=== PATIENT | female | born 1940 | race Caucasian/White ===

== ENCOUNTER 2025-03-15 15:31 | Inpatient (IN) ==
--- NOTE | 2025-03-15 15:46 | Emergency Department Note ---
Impression & Plan AMS (altered mental status), Acute UTI (urinary tract infection), ASHLI (acute kidney injury), Elevated troponin, Elevated lactic acid level ED Provider Note HISTORY OF PRESENT ILLNESS: Patient is an 85-year-old female presenting with altered mental status. Patient presents from [facility] via EMS. Patient has baseline dementia but reportedly today she has not gotten up out of bed and seems more confused than normal. Patient supplies no meaningful history. No reported fevers. No vomiting or diarrhea. Fingerstick glucose for EMS was in the 200s. No reported trauma. ROS: as above PHYSICAL EXAM: Constitutional: Patient appears in no acute distress. HENT: Head: Normocephalic and atraumatic. Eyes: EOMI, PERRL Mouth/Throat: Mucous membranes dry. Neck: Trachea midline. Neck supple. Cardiovascular: Irregular rhythm. No murmurs, rubs or gallops. Intact distal pulses. Pulmonary/Chest: No respiratory distress. Breath sounds clear and equal bilaterally. No wheezes or rales. Abdominal: Abdomen soft, no tenderness, rebound or guarding. Musculoskeletal: No edema, tenderness or deformity noted. Skin: Warm and dry. No rash, erythema, pallor or cyanosis Psychiatric: Appropriate mood and affect for situation. Neurological: Lethargic. CN II-XII grossly intact MDM: - Vitals signs showed hypothermia. - History obtained via EMS, given patient's dementia. History as above. - Chronic conditions affecting care: HLD; GERD; dementia - Differential diagnoses include, but are not limited to: pneumonia; UTI; viral syndrome; ACS; electrolyte abnormality; dehydration; pneumonia; CVA; intracranial hemorrhage - Order placed for continuous cardiac monitoring. At this time, monitor showed rate of 87 bpm with irregular rhythm, per my interpretation. - External medical records reviewed. - EKG image interpreted by myself showed atrial fibrillation. Rate 105 bpm. QT 418. No acute ischemic changes. Noted to have a right bundle branch block. - Laboratory workup interpreted by myself showed normal WBC; elevated (Hgb 18.0); normal PT/INR; stable electrolytes; elevated anion gap (16); ASHLI (Cr 1.88); elevated troponin (46.1); elevated lactic acid (4.0); normal procalcitonin - UA obtained via straight cath shows evidence of infection. - Blood cultures obtained - Patient given 2L NS in ER. Patient sepsis fluid volume calculation based on ideal body weight is 1908.90 mL. - Given 2g IV rocephin empirically - COVID/flu/RSV negative - Elevated hemoglobin, elevated anion gap and ASHLI likely secondary to dehydration. - CXR image reviewed by myself negative for pneumonia, per my interpretation. - CT head wo contrast negative for acute intracranial pathology. - Discussion was had with telephonic case manager about patient's case and need for admission - Hospitalist, Dr. Santiago, consulted for admission at 17:47 - Patient admitted to [facility] for further evaluation and management. ASSESSMENT AND PLAN: Diagnosis: altered mental status; acute UTI; ASHLI; elevated troponin; elevated lactic acid Plan: admit Past Med/Surg History Problem List (Updated 03/15/25 @ 17:44 by Tari Biswas MD) Elevated lactic acid level (Acute) Elevated troponin (Acute) ASHLI (acute kidney injury) (Acute) Acute UTI (urinary tract infection) (Acute) AMS (altered mental status) (Acute) Abnormal ECG Memory loss Ventricular ectopy present on electrocardiography Dyslipidemia Osteoarthritis GERD without esophagitis Medical History Basal cell carcinoma Family History Other Breast cancer Social History Smoking Status: Unknown if ever smoked Do You Dip or Chew Tobacco: No; Hx Alcohol Use: No Hx Substance Use: No Preferred Language: Kazakh Feels Safe at Home: Yes Allergies Allergies Allergy/AdvReac Type Severity Reaction Status Date / Time No Known Allergies Allergy Verified 03/15/25 17:20 Home Meds Home Medications Medication Instructions Recorded Confirmed acetaminophen 325 mg tablet 650 mg PO Q6H PRN PAIN/FEVER 03/15/25 03/15/25 (Tylenol) docusate sodium 100 mg capsule 100 mg PO BID PRN Constipation 03/15/25 03/15/25 loperamide 2 mg tablet 2 mg PO DIRECTED PRN Diarrhea 03/15/25 03/15/25 quetiapine 25 mg tablet (Seroquel) 25 mg PO HS 03/15/25 03/15/25 Results & Data (ED) Vital Signs Vital Signs - 24 hr 03/15/25 15:30 03/15/25 15:55 03/15/25 15:55 Temperature 35.7 C L Temperature Source Rectal Pulse Rate 101 H Pulse Rate [Apical] Respiratory Rate 20 Blood Pressure 102/73 Blood Pressure [Right Arm] Blood Pressure Mean 82 Blood Pressure Mean [Right Arm] Pulse Oximetry Oxygen Delivery Method Room Air Room Air Sepsis Recent Fever Within 48 Hours No Sepsis New/Unexplained Change in Mental Status Yes Sepsis Action Taken by Nursing Physician Notified 03/15/25 16:25 03/15/25 17:00 03/15/25 17:00 Temperature 35.7 C L Temperature Source Rectal Pulse Rate 87 Pulse Rate [Apical] 89 Respiratory Rate 18 Blood Pressure Blood Pressure [Right Arm] 109/66 Blood Pressure Mean Blood Pressure Mean [Right Arm] 80 Pulse Oximetry 98 Oxygen Delivery Method Room Air Sepsis Recent Fever Within 48 Hours Sepsis New/Unexplained Change in Mental Status Sepsis Action Taken by Nursing Laboratory Data 03/15/25 15:55 03/15/25 15:55 Lab Results 03/15/25 03/15/25 03/15/25 Range/Units 15:50 15:55 16:23 WBC 7.68 (4.8-10.8) K/ul RBC 5.65 H (4.20-5.40) M/uL Hgb 18.0 H (12.0-16.0) g/dl Hct 53.5 H (37.0-47.0) % MCV 94.7 (80.0-100.0) fL MCH 31.9 (25.0-34.0) pg MCHC 33.6 (32.0-36.0) g/dL RDW Std Deviation 47.6 H (36.4-46.3) fL RDW Coeff of Iram 13.6 (11.5-14.5) % Plt Count 271 (130-400) K/uL MPV 10.4 (9.4-12.4) fL Immature Gran % (Auto) 0.4 % Neut % (Auto) 63.4 % Lymph % (Auto) 31.6 % Stephens % (Auto) 3.1 % Eos % (Auto) 0.8 % Baso % (Auto) 0.7 % Neut # (Auto) 4.87 (1.40-6.50) K/uL Lymph # (Auto) 2.43 (1.20-3.40) K/uL Stephens # (Auto) 0.24 (0.11-0.59) K/uL Eos # (Auto) 0.06 (0.00-0.50) K/uL Baso # (Auto) 0.05 (0.00-0.20) K/uL Immature Gran # (Auto) 0.03 (0.01-0.20) K/uL PT 11.8 (9.0-12.0) Seconds INR 1.1 (0.9-1.1) APTT 25 (21-31) Seconds PTT Ratio 0.9 Sodium 139 (136-145) mmol/L Potassium 4.3 (3.5-5.1) mmol/L Chloride 105 (98-107) mmol/L Carbon Dioxide 16 L (21-32) mmol/L Anion Gap 18 H (3-11) BUN 39 H (6-23) mg/dl Creatinine 1.88 H (0.6-1.2) mg/dl Est Cr Clr Drug Dosing 18.4 ml/min eGFR 26.21 BUN/Creatinine Ratio 20.7 H (10-20) Glucose 209 H (70-99(Fasting)) mg/dl Lactate (0.4-2.0) mmol/L Calcium 10.4 H (8.6-10.3) mg/dl Magnesium 2.1 (1.7-2.4) mg/dl Total Bilirubin 1.1 H (0.2-1.0) mg/dl AST 26 (13-39) U/L ALT 14 (7-52) U/L Alkaline Phosphatase 76 (34-104) U/L Troponin I High Sens 46.1 H (0-14) pg/ml Total Protein 6.8 (6.0-8.3) gm/dl Albumin 4.0 (3.4-5.0) gm/dl Globulin 2.8 (2.5-4.0) gm/dl Albumin/Globulin Ratio 1.4 (0.9-2) Procalcitonin 0.05 (0-0.5) ng/ml Urine Color Dark Yellow Urine Appearance Cloudy A (Clear) Urine pH 5.0 (4.5-7.5) Ur Specific [place] 1.024 (1.000-1.030) Urine Protein 2+ H (Negative) Urine Glucose (UA) Negative (Negative) Urine Ketones 1+ H (Negative) Urine Blood 1+ H (Negative) Urine Nitrite Negative (Negative) Urine Bilirubin 2+ H (Negative) Urine Urobilinogen Negative (Negative) Ur Leukocyte Esterase 2+ H (Negative) Urine WBC (Auto) 21-50 H (0-5) /hpf Urine RBC (Auto) >20 H (0-2) /hpf U Hyaline Cast (Auto) >20 H (0-2) /lpf U Epithel Cells (Auto) 3-5 H (0-2) /hpf Urine Bacteria (Auto) 4+ H (None Seen) WBC Casts Present A (None Prsent) /lpf Urine Mucus Present A (None Prsent) Urine Comment SARS-CoV-2 (PCR) NEGATIVE (Negative) Influenza Type A (PCR) Negative (Neg) Influenza Type B (PCR) Negative (Neg) RSV (RT-PCR) Negative (Neg) 03/15/25 Range/Units 16:42 WBC (4.8-10.8) K/ul RBC (4.20-5.40) M/uL Hgb (12.0-16.0) g/dl Hct (37.0-47.0) % MCV (80.0-100.0) fL MCH (25.0-34.0) pg MCHC (32.0-36.0) g/dL RDW Std Deviation (36.4-46.3) fL RDW Coeff of Iram (11.5-14.5) % Plt Count (130-400) K/uL MPV (9.4-12.4) fL Immature Gran % (Auto) % Neut % (Auto) % Lymph % (Auto) % Stephens % (Auto) % Eos % (Auto) % Baso % (Auto) % Neut # (Auto) (1.40-6.50) K/uL Lymph # (Auto) (1.20-3.40) K/uL Stephens # (Auto) (0.11-0.59) K/uL Eos # (Auto) (0.00-0.50) K/uL Baso # (Auto) (0.00-0.20) K/uL Immature Gran # (Auto) (0.01-0.20) K/uL PT (9.0-12.0) Seconds INR (0.9-1.1) APTT (21-31) Seconds PTT Ratio Sodium (136-145) mmol/L Potassium (3.5-5.1) mmol/L Chloride (98-107) mmol/L Carbon Dioxide (21-32) mmol/L Anion Gap (3-11) BUN (6-23) mg/dl Creatinine (0.6-1.2) mg/dl Est Cr Clr Drug Dosing ml/min eGFR BUN/Creatinine Ratio (10-20) Glucose (70-99(Fasting)) mg/dl Lactate 4.0 H* (0.4-2.0) mmol/L Calcium (8.6-10.3) mg/dl Magnesium (1.7-2.4) mg/dl Total Bilirubin (0.2-1.0) mg/dl AST (13-39) U/L ALT (7-52) U/L Alkaline Phosphatase (34-104) U/L Troponin I High Sens (0-14) pg/ml Total Protein (6.0-8.3) gm/dl Albumin (3.4-5.0) gm/dl Globulin (2.5-4.0) gm/dl Albumin/Globulin Ratio (0.9-2) Procalcitonin (0-0.5) ng/ml Urine Color Urine Appearance (Clear) Urine pH (4.5-7.5) Ur Specific [place] (1.000-1.030) Urine Protein (Negative) Urine Glucose (UA) (Negative) Urine Ketones (Negative) Urine Blood (Negative) Urine Nitrite (Negative) Urine Bilirubin (Negative) Urine Urobilinogen (Negative) Ur Leukocyte Esterase (Negative) Urine WBC (Auto) (0-5) /hpf Urine RBC (Auto) (0-2) /hpf U Hyaline Cast (Auto) (0-2) /lpf U Epithel Cells (Auto) (0-2) /hpf Urine Bacteria (Auto) (None Seen) WBC Casts (None Prsent) /lpf Urine Mucus (None Prsent) Urine Comment SARS-CoV-2 (PCR) (Negative) Influenza Type A (PCR) (Neg) Influenza Type B (PCR) (Neg) RSV (RT-PCR) (Neg) Administered Medications Discontinued Medications Ceftriaxone Sodium (Rocephin) 2,000 mg in 50 mls @ 100 mls/hr IV NOW STA Stop: 03/15/25 17:21 Last Infusion: 03/15/25 17:35 Dose: Infused Documented By: Admin: 03/15/25 17:05 Dose: 100 mls/hr Documented By: IVETTE Sodium Chloride (Nss) 1,000 mls @ 999 mls/hr IV .Q1H1M STA Stop: 03/15/25 18:00 Last Admin: 03/15/25 17:05 Dose: 999 mls/hr Documented By: IVETTE Sodium Chloride (Nss) 1,000 mls @ 999 mls/hr IV .Q1H1M ONE Stop: 03/15/25 18:06 Last Admin: 03/15/25 17:30 Dose: 999 mls/hr Documented By: MERCEDES Imaging Data Radiologist's Impression: Chest X-Ray 03/15/25 15:44 EXAM: XR chest 1V not portable CLINICAL HISTORY: Sepsis TECHNIQUE: An X-ray image of the chest is obtained in AP projection. COMPARISON: No prior studies are available for comparison. FINDINGS: Pulmonary Parenchyma: Hyperinflation of both lungs. A small nodular opacity is seen in the right upper lung zone. Prominent interstitial lung markings, likely senile changes. No evidence of consolidation, or collapse. No evidence of pleural effusion or pleural thickening. Heart and Mediastinum: The heart size is enlarged. No mediastinal widening or masses. No hilar or mediastinal lymphadenopathy. Prominent aortic arch shadow. Bony Thorax: Degenerative changes in the thoracic spine. Mild dextroscoliosis of the thoracic spine. Osteopenia. Right acromioclavicular osteoarthritis. Soft Tissues: Soft tissues overlying the chest wall are unremarkable. Anterior chest wall leads are noted. IMPRESSION: 1. No acute cardiopulmonary abnormalities are identified. 2. Hyperinflation of both lungs, likely COPD. 3. Small nodular opacity is seen in the right upper lung zone. further CT is recommended after clinical correlation. 4. Prominent interstitial lung markings, likely senile changes. 5. Cardiomegaly. Electronically signed by Karan Mei 03-15-2025 6:[address] 03/15/25 15:44 EXAM: CT head/brain wo con CLINICAL HISTORY: confusion TECHNIQUE: Axial non-contrast CT scan of the brain was performed from the skull base to the high parietal region. One of the following dose reduction techniques were utilized for this exam: Automated exposure control, adjustment of the mA and/or kV according to patient size, use of iterative reconstruction. DLP: 625.80 mGy.cm COMPARISON: No prior study is available for comparison. FINDINGS: Brain Parenchyma: Bilateral cerebral deep periventricular white matter hypodensity is noted together with a few tiny hypodense foci seen mainly at the high frontal subcortical regions. No evidence of acute infarct, hemorrhage, or mass effect. No abnormal areas of hyperattenuation. Ventricular System: Moderate rather symmetrical dilatation of both lateral ventricles. Subarachnoid Spaces: prominant sulci and cisterns. No evidence of subarachnoid hemorrhage or extra-axial fluid collections. Cerebellum and Brainstem: No masses, lesions, or areas of abnormal density. Orbits: Normal appearance of the globes, optic nerves, and extraocular muscles. No evidence of orbital masses or abnormal density. Sinuses: Mild mucosal thickening is seen in the left maxillary and right frontal sinuses with frothy secretions and hyperdensity . Mastoid Air Cells: Clear mastoid air cells. No evidence of mastoiditis. Skull: Cutaneous/subcutaneous foci hyperdensities are seen in the frontal region, midline in location. Bilateral frontal hyperostosis. No acute fractures. IMPRESSION: 1. No evidence of acute infarct, hemorrhage, or mass effect. 2. 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 3. Age-matched brain atrophic changes. 4. Mild left maxillary and frontal sinusitis with suspected right frontal superadded fungal infection, needs clinical correlation. 5. Early changes of stroke may not be detected on a CT scan. If there is a strong clinical suspicion of stroke, then an MRI with diffusion-weighted imaging is suggested. Electronically signed by Karan Mei 03-15-2025 6:06 PM Discharge Plan Visit Data Chief Complaint: Altered Mental Status Stated Complaint: AMS ED Provider: Tari Biswas Discharge Problem: AMS (altered mental status), Acute UTI (urinary tract infection), ASHLI (acute kidney injury), Elevated troponin, Elevated lactic acid level Condition: Fair Forms Stand Alone Forms: Theorem Prescriptions Prescriptions: No Action quetiapine [Seroquel] 25 mg Tablet 25 mg PO HS acetaminophen [Tylenol] 325 mg Tablet 650 mg PO Q6H PRN (Reason: PAIN/FEVER) loperamide [Anti-Diarrhea] 2 mg Tablet 2 mg PO DIRECTED PRN (Reason: Diarrhea) docusate sodium 100 mg Capsule 100 mg PO BID PRN (Reason: Constipation) Referrals Referrals: Matt Ruiz, [employer]INEER[employer] [Primary Care Provider] -
[2025-03-15 16:23] LABS: Hematocrit (blood only) 53.5 % (37.0-47.0); Hemoglobin 18.0 g/dl (12.0-16.0); Immature Granulocytes # (auto) 0.03 K/uL (0.01-0.20); Immature Granulocytes % (auto) 0.4 %; Mean Corpuscular Hemoglobin 31.9 pg (25.0-34.0); Mean Corpuscular Volume 94.7 fL (80.0-100.0); Platelet Count 271 K/uL (130-400); RDW Standard Deviation 47.6 fL (36.4-46.3); Red Blood Count 5.65 M/uL (4.20-5.40); White Blood Count 7.68 K/ul (4.8-10.8)
[2025-03-15 16:51] LABS: Appearance Urine Cloudy (Clear); Bacteria Urine Automated 4+ (None Seen); Cast Urine Automated >20 /lpf (0-2); Glucose Urine UA Negative (Negative); RBC Urine Automated >20 /hpf (0-2); WBC Urine Automated 21-50 /hpf (0-5)
[2025-03-15 16:52] LABS: Magnesium 2.1 mg/dl (1.7-2.4); Sodium 139.0 mmol/L (136-145)
[2025-03-15 16:54] LABS: INR 1.1 (0.9-1.1); Partial Thromboplastin Time 25 Seconds (21-31); Prothrombin Time 11.8 Seconds (9.0-12.0)
[2025-03-15 16:59] LABS: Anion Gap 18.0 (3-11); Bilirubin,Total 1.1 mg/dl (0.2-1.0); Calcium 10.4 mg/dl (8.6-10.3); Carbon Dioxide 16.0 mmol/L (21-32); Chloride 105.0 mmol/L (98-107); Potassium 4.3 mmol/L (3.5-5.1)
[2025-03-15 17:05] LABS: Alanine Aminotransferase 14.0 U/L (7-52); Albumin Globulin Ratio 1.4 (0.9-2); Alkaline Phosphatase 76.0 U/L (34-104); Blood Urea Nitrogen 39.0 mg/dl (6-23); Creatinine Clr Calc Pharmacy 18.4 ml/min; Globulin 2.8 gm/dl (2.5-4.0); Glucose 209.0 mg/dl (70-99(Fasting)); Total Protein 6.8 gm/dl (6.0-8.3)
[2025-03-15] MEDS: SODIUM CHLORIDE 0.9% 1,000 ML IV STA (17:05)
[2025-03-15] MEDS: cefTRIAXone SODIUM 2,000 MG/50 ML BAG IV STA (17:05)
[2025-03-15] MEDS: SODIUM CHLORIDE 0.9% 1,000 ML IV ONE (17:30)
[2025-03-15 17:44] LABS: Influenza A virus by PCR Negative (Neg); Influenza B virus by PCR Negative (Neg); SARS CoV2 RNA(COVID-19) Ceph NEGATIVE (Negative)
--- NOTE | 2025-03-15 18:07 | History & Physical Report ---
Date of Service March 15, 2025 Assessment & Plan (1) Severe sepsis: (2) UTI (urinary tract infection): (3) Elevated troponin: (4) ASHLI (acute kidney injury): (5) Dementia: (6) Atrial arrhythmia: (7) GERD without esophagitis: (8) Acute metabolic encephalopathy: (9) Polycythemia: (10) DVT prophylaxis: Plan 85yo female with history of severe dementia, resident of [facility] - along with PVCs (has seen cardiology for such in the past) & basal cell skin cancers presents via EMS from [facility] due to worsening mental status, lethargy/sleeping excessively, not walking like usual, and eating/drinking poorly. Symptoms started about 2 days ago by report. Upon presentation to [facility] she was hypothermic and tachycardic. U/a obtained in the ER was highly suggestive of UTI, lactate was elevated, and she had evidence of ASHLI. Clinical picture c/w severe sepsis. #severe sepsis with hypothermia - -has received 30ml/kg of isotonic fluids upon ER presentation -warming blanket applied for hypothermia -s/p rocephin IV for suspected UTI -given the severity of illness will broaden abx to IV cefepime; will also give a dose of IV daptomycin in the event of either MRSA or enterococcus in the urine -serial lactates have improved -continue basal fluids upon admission -repeat labs in am -follow blood/urine cx's #UTI, with ?pyelonephritis (has WBC casts on urine microscopy) - -check CT a/p - r/o stones, r/o signs of pyelonephritis -see above under "severe sepsis" #acute metabolic encephalopathy - -2nd to presumed UTI with resulting sepsis -supportive care -avoid benzos/avoid sedatives -cont seroquel at HS (chronic med) -if unable or unwilling to take - and if agitated, etc - would need to use IM zyprexa #elevated troponin - -myocardial demand ischemia in setting of rapid a.fib (or flutter) + severe sepsis #atrial arrhythmia - -a.fib vs a.flutter -rates are low 100s -fortunately BPs are stable but are low-normal -if rate control is needed would utilize IV digoxin 250mcg x 1-2 doses #acute kidney injury - -sepsis associated -serial labs -IV fluids -CT a/p - r/o any obstructive process #lactic acidosis - -2nd to severe sepsis -improving based on trend of lactates #end-stage/advanced dementia - -patient has late-stage dementia -at high risk of hospital delirium & agitation -see above re: antipsychotics #abnormal head CT - -?fungal sinusitis? -after this admission consider ENT referral #hypercalcemia - -likely due to volume contraction -hydrate, repeat total calcium level in am #polycythemia - -suspect due to hemoconcentration in setting of marked volume contraction -repeat CBC am #DVT proph - -heparin 5000 units BID pt's son and [id number] updated at bedside they confirm DNR/DNI status History of Present Illness Chief Complaint: weakness, altered mental status, unwell, not walking like usual Primary Care Provider: Matt Ruiz, GREETING CARD EDITOR-C 85yo female with history of severe dementia, resident of [facility] - along with PVCs (has seen cardiology for such in the past) & basal cell skin cancers presents via EMS from [facility] due to worsening mental status, lethargy/sleeping excessively, not walking like usual, and eating/drinking poorly. Symptoms started about 2 days ago by report. Upon presentation to [facility] she was hypothermic and tachycardic. U/a obtained in the ER was highly suggestive of UTI, lactate was elevated, and she had evidence of ASHLI. Clinical picture c/w severe sepsis. When I did my admission assessment the patient's son & [id number] were present at bedside. They report she has been at [facility] for about 2 years. Her dementia started at least 4-5 years ago. There are many days when she thinks her son is her . She is not oriented to place/time. She is not on a special diet or thickened liquids. Typically walks at the personal nursing home unassisted. Son reports he is unaware of any prior kidney stone. Allergies Allergy/AdvReac Type Severity Reaction Status Date / Time No Known Allergies Allergy Verified 03/15/25 17:20 Home Medications Medication Instructions Recorded Confirmed Type acetaminophen 325 mg tablet 650 mg PO Q6H PRN PAIN/FEVER 03/15/25 03/15/25 History (Tylenol) docusate sodium 100 mg capsule 100 mg PO BID PRN Constipation 03/15/25 03/15/25 History loperamide 2 mg tablet 2 mg PO DIRECTED PRN Diarrhea 03/15/25 03/15/25 History quetiapine 25 mg tablet (Seroquel) 25 mg PO HS 03/15/25 03/15/25 History Past Med/Surg History Problem List (Updated 03/15/25 @ 20:55 by Background Daemon) Polycythemia DVT prophylaxis Acute metabolic encephalopathy Atrial arrhythmia UTI (urinary tract infection) Severe sepsis Elevated lactic acid level (Acute) Elevated troponin (Acute) ASHLI (acute kidney injury) (Acute) Acute UTI (urinary tract infection) (Acute) AMS (altered mental status) (Acute) Abnormal ECG Memory loss Ventricular ectopy present on electrocardiography Medical History (Updated 03/15/25 @ 20:55 by Background Daemon) PVCs (premature ventricular contractions) Dyslipidemia Osteoarthritis GERD without esophagitis Dementia Basal cell carcinoma Family History (Updated 03/15/25 @ 20:22 by Armando Santiago MD) Mother Breast cancer Social History (Updated 03/15/25 @ 20:25 by Armando Santiago MD) Smoking Status: Never smoker Second Hand Exposure: No; Do You Dip or Chew Tobacco: No; Tobacco Cessation Education Requested by Patient: No Hx Alcohol Use: No Hx Substance Use: No Preferred Language: Amharic Payroll Administrative Assistant Required: No Beliefs That Will Affect Care: None marital status: / Current Living Situation: Group Home 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 How many Children do You have: 1 How many Children do You have Comment: son other: served 4 years in the in the 1960s Feels Safe at Home: Yes Safety Concerns: Feels Safe At This Time Review of Systems Review of Systems: Unobtainable due to cognitive status Physical Exam Physical Exam: gen - looks quite ill, dehydrated; fluctuates between being lethargic, then shouting out asking for her mother eyes - PERRL, pupils 2-3mm b/l HENT - MM dry neck - no obvious JVD, no lymph nodes, no goiter heart - tachy, irregularly irregular, s1 s2, 2-3/6 holosystolic murmur heart loudest at the apex lungs - CTA b/l abd - soft, NT, ND, BS+, no obvious mass or peritoneal signs; bladder palpable? neuro - muscle wasting of legs, no increased tone of any extremity skin - no rash psych - oriented x 0, lethargic - then shouting, calling for her mom vascular/perfusion exam -- performed at ~1830 on 03/15/25 - right foot is warm, left foot is slightly cool cap refill both feet 2-3 seconds pulses b/l feet 1-2+ Results & Data Results & Data Vital Signs (Past 12 Hours) Vital Signs Temp Pulse Pulse Resp BP BP Pulse Ox 03/15/25 17:00 35.7 C L 03/15/25 17:00 89 18 109/66 98 03/15/25 16:25 87 03/15/25 15:55 03/15/25 15:55 03/15/25 15:30 35.7 C L 101 H 20 102/73 O2 Del Method 03/15/25 17:00 03/15/25 17:00 Room Air 03/15/25 16:25 03/15/25 15:55 Room Air 03/15/25 15:55 Room Air 03/15/25 15:30 Laboratory Results Laboratory Results - last 24 hr 03/15/25 03/15/25 03/15/25 15:50 15:55 16:23 WBC 7.68 RBC 5.65 H Hgb 18.0 H Hct 53.5 H MCV 94.7 MCH 31.9 MCHC 33.6 RDW Std Deviation 47.6 H RDW Coeff of Iram 13.6 Plt Count 271 MPV 10.4 Immature Gran % (Auto) 0.4 Neut % (Auto) 63.4 Lymph % (Auto) 31.6 Mcdonough % (Auto) 3.1 Eos % (Auto) 0.8 Baso % (Auto) 0.7 Neut # (Auto) 4.87 Lymph # (Auto) 2.43 Mcdonough # (Auto) 0.24 Eos # (Auto) 0.06 Baso # (Auto) 0.05 Immature Gran # (Auto) 0.03 PT 11.8 INR 1.1 APTT 25 PTT Ratio 0.9 Sodium 139 Potassium 4.3 Chloride 105 Carbon Dioxide 16 L Anion Gap 18 H BUN 39 H Creatinine 1.88 H Est Cr Clr Drug Dosing 18.4 eGFR 26.21 BUN/Creatinine Ratio 20.7 H Glucose 209 H Lactate Calcium 10.4 H Magnesium 2.1 Total Bilirubin 1.1 H AST 26 ALT 14 Alkaline Phosphatase 76 Troponin I High Sens 46.1 H Total Protein 6.8 Albumin 4.0 Globulin 2.8 Albumin/Globulin Ratio 1.4 Procalcitonin 0.05 Urine Color Dark Yellow Urine Appearance Cloudy A Urine pH 5.0 Ur Specific Iuka 1.024 Urine Protein 2+ H Urine Glucose (UA) Negative Urine Ketones 1+ H Urine Blood 1+ H Urine Nitrite Negative Urine Bilirubin 2+ H Urine Urobilinogen Negative Ur Leukocyte Esterase 2+ H Urine WBC (Auto) 21-50 H Urine RBC (Auto) >20 H U Hyaline Cast (Auto) >20 H U Epithel Cells (Auto) 3-5 H Urine Bacteria (Auto) 4+ H WBC Casts Present A Urine Mucus Present A Urine Comment SARS-CoV-2 (PCR) NEGATIVE Influenza Type A (PCR) Negative Influenza Type B (PCR) Negative RSV (RT-PCR) Negative 03/15/25 03/15/25 03/15/25 16:42 17:45 18:36 WBC RBC Hgb Hct MCV MCH MCHC RDW Std Deviation RDW Coeff of Iram Plt Count MPV Immature Gran % (Auto) Neut % (Auto) Lymph % (Auto) Mcdonough % (Auto) Eos % (Auto) Baso % (Auto) Neut # (Auto) Lymph # (Auto) Mcdonough # (Auto) Eos # (Auto) Baso # (Auto) Immature Gran # (Auto) PT INR APTT PTT Ratio Sodium Potassium Chloride Carbon Dioxide Anion Gap BUN Creatinine Est Cr Clr Drug Dosing eGFR BUN/Creatinine Ratio Glucose Lactate 4.0 H* 3.0 H* Calcium Magnesium Total Bilirubin AST ALT Alkaline Phosphatase Troponin I High Sens 33.5 H D Total Protein Albumin Globulin Albumin/Globulin Ratio Procalcitonin Urine Color Urine Appearance Urine pH Ur Specific Iuka Urine Protein Urine Glucose (UA) Urine Ketones Urine Blood Urine Nitrite Urine Bilirubin Urine Urobilinogen Ur Leukocyte Esterase Urine WBC (Auto) Urine RBC (Auto) U Hyaline Cast (Auto) U Epithel Cells (Auto) Urine Bacteria (Auto) WBC Casts Urine Mucus Urine Comment SARS-CoV-2 (PCR) Influenza Type A (PCR) Influenza Type B (PCR) RSV (RT-PCR) Diagnostic Findings Chest X-Ray 03/15/25 15:44 EXAM: XR chest 1V not portable CLINICAL HISTORY: Sepsis TECHNIQUE: An X-ray image of the chest is obtained in AP projection. COMPARISON: No prior studies are available for comparison. FINDINGS: Pulmonary Parenchyma: Hyperinflation of both lungs. A small nodular opacity is seen in the right upper lung zone. Prominent interstitial lung markings, likely senile changes. No evidence of consolidation, or collapse. No evidence of pleural effusion or pleural thickening. Heart and Mediastinum: The heart size is enlarged. No mediastinal widening or masses. No hilar or mediastinal lymphadenopathy. Prominent aortic arch shadow. Bony Thorax: Degenerative changes in the thoracic spine. Mild dextroscoliosis of the thoracic spine. Osteopenia. Right acromioclavicular osteoarthritis. Soft Tissues: Soft tissues overlying the chest wall are unremarkable. Anterior chest wall leads are noted. IMPRESSION: 1. No acute cardiopulmonary abnormalities are identified. 2. Hyperinflation of both lungs, likely COPD. 3. Small nodular opacity is seen in the right upper lung zone. further CT is recommended after clinical correlation. 4. Prominent interstitial lung markings, likely senile changes. 5. Cardiomegaly. Electronically signed by Karan Mei 03-15-2025 6:[address] 03/15/25 15:44 EXAM: CT head/brain wo con CLINICAL HISTORY: confusion TECHNIQUE: Axial non-contrast CT scan of the brain was performed from the skull base to the high parietal region. One of the following dose reduction techniques were utilized for this exam: Automated exposure control, adjustment of the mA and/or kV according to patient size, use of iterative reconstruction. DLP: 625.80 mGy.cm COMPARISON: No prior study is available for comparison. FINDINGS: Brain Parenchyma: Bilateral cerebral deep periventricular white matter hypodensity is noted together with a few tiny hypodense foci seen mainly at the high frontal subcortical regions. No evidence of acute infarct, hemorrhage, or mass effect. No abnormal areas of hyperattenuation. Ventricular System: Moderate rather symmetrical dilatation of both lateral ventricles. Subarachnoid Spaces: prominant sulci and cisterns. No evidence of subarachnoid hemorrhage or extra-axial fluid collections. Cerebellum and Brainstem: No masses, lesions, or areas of abnormal density. Orbits: Normal appearance of the globes, optic nerves, and extraocular muscles. No evidence of orbital masses or abnormal density. Sinuses: Mild mucosal thickening is seen in the left maxillary and right frontal sinuses with frothy secretions and hyperdensity . Mastoid Air Cells: Clear mastoid air cells. No evidence of mastoiditis. Skull: Cutaneous/subcutaneous foci hyperdensities are seen in the frontal region, midline in location. Bilateral frontal hyperostosis. No acute fractures. IMPRESSION: 1. No evidence of acute infarct, hemorrhage, or mass effect. 2. 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 3. Age-matched brain atrophic changes. 4. Mild left maxillary and frontal sinusitis with suspected right frontal superadded fungal infection, needs clinical correlation. 5. Early changes of stroke may not be detected on a CT scan. If there is a strong clinical suspicion of stroke, then an MRI with diffusion-weighted imaging is suggested. Electronically signed by Karan Mei 03-15-2025 6:06 PM EKG- my reading - suspected a.fib with RVR, RBBB Code Status & VTE Plan Code Status DNR/DNI per pt's son PG Care Time/CCT Total # of Minutes Spent Total Time Spent with Patient: Total time spent is greater than 50% in coordination of care (as documented) at patient's floor/unit and/or counseling patient: Coding Level of Care Code 13627 INT INP/OBS CARE 3/75MIN Diagnoses Severe sepsis A41.9; R65.20 UTI (urinary tract infection) N39.0 Elevated troponin R79.89 ASHLI (acute kidney injury) N17.9 Dementia F03.90 Atrial arrhythmia I49.8 GERD without esophagitis K21.9 Acute metabolic encephalopathy G93.41 Polycythemia D75.1 DVT prophylaxis Z29.9
[2025-03-15] MEDS: SODIUM CHLORIDE 0.9% 1,000 ML IV SCH (19:39)
[2025-03-15] MEDS: DAPTOmycin 350 MG in SYRINGE 0 ML IV ONE (19:39)
[2025-03-15] MEDS ORDERED: ACETAMINOPHEN 325 MG TAB PO PRN (21:45)
[2025-03-15] MEDS ORDERED: ONDANSETRON INJ 2 MG/ML 2 ML VIAL IV PRN (21:45)
--- NOTE | 2025-03-15 21:51 | CT Scan Report ---
EXAM: CT abd pelvis wo con CLINICAL HISTORY: Sepsis/UTI; r/o stones, r/o pyelonephritis. TECHNIQUE: Non-contrast CT of the abdomen and pelvis was performed, with the following protocol: axial images and reconstructed coronal and sagittal images. No intravenous contrast was administered. One of the following dose reduction techniques was utilized for this exam: Automated exposure control, adjustment of the mA and/or kV according to patient size, and use of iterative reconstruction. COMPARISON: None. FINDINGS: Abdomen: Liver: Normal in size, shape, and density. No focal lesions, cysts, or masses were identified. Few hepatic calcifications, likely sequelae of old granulomatous infection. Gallbladder and Biliary System: The gallbladder is surgically removed. Pancreas: Pancreatic head, body, and tail are visualized and appear normal in size and density. No pancreatic masses or calcifications were noted. Spleen: Normal in size, shape, and density. No splenic lesions or masses were identified. Multiple scattered tiny calcifications are likely sequelae of old granulomatous infection Kidneys and Adrenal Glands: Both kidneys are normal in size, shape, and position. Cortical thickness is within normal limits. No renal calculi or hydronephrosis. Left renal simple cortical cyst Adrenal glands are unremarkable. Appendix: No sign of acute appendicitis Pelvis: Urinary Bladder: Normal in contour and wall thickness. No intraluminal lesions. Uterus: Few uterine fibroids, some of them show calcifications, largest is in the posterior wall, measuring 30x28 mm No adnexal masses Peritoneal and Retroperitoneal Structures: No free fluid or abnormal fluid collections were identified within the abdomen or pelvis. No lymphadenopathy was noted. Bowel: The visualized bowel loops are normal in caliber and appearance. No evidence of bowel obstruction or wall thickening. Colonic non-complicated diverticulosis Bones and Soft Tissues: Pelvic bones and soft tissues are unremarkable. No fractures or abnormal masses were identified. IMPRESSION: 1. No renal stones or hydronephrosis or signs of infection. 2. Few uterine fibroids, some of them show calcifications, largest is in the posterior wall, measuring 30x28 mm. 3. Colonic non-complicated diverticulosis. 4. Multiple splenic scattered tiny and few calcifications are likely sequelae of old granulomatous infection. 5. Left renal simple cortical cyst. Electronically signed by Karan Mei 03-15-2025 9:51 PM
[2025-03-15] MEDS ORDERED: CEFEPIME 2000MG 2,000 MG/20 ML SYR IV STA (22:21)
[2025-03-15] MEDS: CEFEPIME 2000MG 2,000 MG/20 ML SYR IV STA (23:13)
[2025-03-16 06:49] LABS: Hematocrit (blood only) 44.9 % (37.0-47.0); Hemoglobin 14.5 g/dl (12.0-16.0); Mean Corpuscular Hemoglobin 31.2 pg (25.0-34.0); Mean Corpuscular Volume 96.6 fL (80.0-100.0); Platelet Count 202 K/uL (130-400); RDW Standard Deviation 48.6 fL (36.4-46.3); Red Blood Count 4.65 M/uL (4.20-5.40); White Blood Count 9.33 K/ul (4.8-10.8)
[2025-03-16 07:02] LABS: Anion Gap 9.0 (3-11); Blood Urea Nitrogen 35.0 mg/dl (6-23); Calcium 9.0 mg/dl (8.6-10.3); Carbon Dioxide 22.0 mmol/L (21-32); Chloride 114.0 mmol/L (98-107); Creatinine Clr Calc Pharmacy 23.4 ml/min; Glucose 105.0 mg/dl (70-99(Fasting)); Potassium 3.6 mmol/L (3.5-5.1); Sodium 145.0 mmol/L (136-145)
--- NOTE | 2025-03-16 07:38 | Electrocardiogram Report ---
Test Reason : Blood Pressure : */* mmHG Vent. Rate : 105 BPM Atrial Rate : * BPM P-R Int : * ms QRS Dur : 158 ms QT Int : 418 ms P-R-T Axes : * 78 -16 degrees QTcB Int : 552 ms Atrial fibrillation with rapid ventricular response Right bundle branch block T wave abnormality, consider inferolateral ischemia Abnormal ECG Confirmed by Jacky Mcconnell ([id number]) on 03/16/2025 7:37:37 AM Referred By: REFERRED SELF Confirmed By: Jacky Mcconnell
[2025-03-16] MEDS: HEPARIN SOD 5,000 UNIT/0.5 ML VIAL SQ SCH (08:08)
[2025-03-16] MEDS: CEFEPIME 1000MG 1,000 MG/10 ML SYR IV SCH (08:08)
[2025-03-16 08:14] LABS: Hemoglobin A1C 5.5 % (4.5-5.6)
--- NOTE | 2025-03-16 10:50 | XCELERA ---
[id number]
--- NOTE | 2025-03-16 15:22 | Hospitalist Progress Note ---
Date of Service March 16, 2025 Assessment & Plan (1) Severe sepsis: Plan: No septic shock with BP remaining normal from 102/73 (03/15/2025, 3:30pm) to 119/76 (03/16/2025, 11:20am). Patient remains afebrile, but appears agitated, uncooperative, incoherent. Bellicose and belligerent, ripping out her peripheral IVs numerous times and refusing orders to stay in bed, constantly trying to sit up and get up and out of bed, thereby necessitating placement of mittens over both patient's hands on 03/16/2025, 3:11pm. Etiology of patient's behavioral issues above remains unclear: are the behavioral issues due to (a) severe sepsis due to recurrent, acute UTI, or are the behavioral issues simply a manifestation of (b) patient's chronic/severe, end-stage dementia with behavioral issues @ [facility] ([place], [place]), or a combination of (a) and (b)? At this time, I am inclined to believe that patient's behavioral issues on 03/16/2025 are due to (b) patient's chronic/severe, end-stage dementia with behavioral issues @ [facility] ([place], [place]), which, unfortunately, is largely untreatable, and can only be mitigated temporarily with olanzapine 2.5mg IM x 1 dose (03/15/2025, 11:12pm) in [facility] ER and olanzapine 2.5mg IM x 1 dose (03/16/2025, 12:49pm) in [facility] Med-Surg bed #S234-1. In the interim, patient has received the following antibiotics to treat her recurrent, acute E. coli UTI (as noted on 03/15/2025, 3:50pm urine culture): 1. ceftriaxone 2g IV x 1 dose (03/15/2025, 5:35pm). 2. daptomycin 350mg IV x 1 dose (03/15/2025, 7:39pm). 2. cefepime 2g IV x 1 dose (03/15/2025, 11:13pm). 3. cefepime 1g IV q12 x 1 dose (03/16/2025, 8:08am). I will check vitals, genito-urinary exam with Depends diaper changes qid while patient remains in [facility], WBC w/diff, lactic acid, procalcitonin, urine culture (03/15/2025, 3:50pm), blood culture #1 (03/15/2025, 3:55pm), and blood culture #2 (03/15/2025, 4:42pm) in the 03/17/2025 am. (2) UTI (urinary tract infection): Plan: See bullet #1 above for details. (3) Elevated troponin: Plan: cf., Troponin-I #1 46.1 pg/mL (03/15/2025, 3:55pm). cf., Troponin-I #2 33.5 pg/mL (03/16/2025, 5:45pm). cf., EKG (03/15/2025, 3:55pm): AFIB @ 105, QTC 552, RBBB, no acute ST depressions/elevations (by my review). cf., EKG (06/30/2020, 11:49am): NSR @ 83, WA 156, QTC 462, no RBBB, no acute ST depressions/elevations (by my review). cf., TTE (03/16/2025, 6:28am): 1. LVEF 55-60%. Regional wall motion abnormalities including mild-moderate hypokinesis of inferior wall. 2. RV normal size and systolic function. 3. No . Mild AI. 4. Mild WA. 5. Mild-moderate MR. 6. Mild TR. RVSP normal. 7. Aortic root normal size. 8. No pericardial effusion. (as per [facility] Dr. Jacky Mcconnell). cf., BUN 39, creatinine 1.88 mg/dL, GFR 26.21 mL/min (03/15/2025, 3:55pm). cf., BUN 35, creatinine 1.41 mg/dL, GFR 37.01 mL/min (03/16/2025, 5:57am). Etiology of nominal troponin-I elevation is most probably due to demand ischemia, which in turn, is due to: (a) severe sepsis due to recurrent, acute E. coli UTI in a severely demented patient with behavioral issues who wears Depends diapers everyday @ [facility] ([place], [place]). 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 Volodymyr Bates on 10/09/2020, 12:19pm [facility] visit note). (c) acute kidney injury with admission creatinine 1.88 mg/dL (, 3:55pm), superimposed on CKD stage III with historical creatinine 1.22 mg/dL (08/30/2022, 10:50pm). Hence, I surmise that patient's nominal troponin-I elevation is consistent with acute type II NSTEMI, for which no further evaluation/intervention is warranted on 03/16/2025. (4) ASHLI (acute kidney injury): Plan: cf., BUN 39, creatinine 1.88 mg/dL, GFR 26.21 mL/min (03/15/2025, 3:55pm). cf., BUN 35, creatinine 1.41 mg/dL, GFR 37.01 mL/min (03/16/2025, 5:57am). cf., CKD stage III with historical creatinine 1.22 mg/dL (08/30/2022, 10:50pm). Etiology of acute kidney injury is most probably due to acute dehydration, which in turn, is due to recurrent, acute E. coli UTI in a severely demented patient with behavioral issues who wears Depends diapers everyday @ [facility] ([place], [place]). Acute kidney injury has been treated with IV fluid rehydration therapy, namely, 1. 1 liter of 0.9% NS @ 999 mL/hr (03/15/2025, 5:05pm). 2. 1 liter of 0.9% NS @ 999 mL/hr (03/15/2025, 5:30pm). 3. 1 liter of 0.9% NS @ 80 mL/hr (03/15/2025, 7:39pm). 4. 1 liter of 0.9% NS @ 80 mL/hr (03/16/2025, 8:10am). Subsequently, acute kidney injury appears to be resolving, as demonstrated by the decline in creatinine level noted above. Subsequently, I have opted to hold off further IV fluid rehydration therapy in order to avoid cardiopulmonary embarrassment associated with indiscriminate IV fluid rehydration therapy in a patient who is underweight with BMI 16.4 (height 172.7 cm; weight 49.0 kg). Subsequently, I have opted to check repeat creatinine level in the 03/17/2025 am. (5) Dementia: Plan: Patient remains afebrile, but appears agitated, uncooperative, incoherent. Bellicose and belligerent, ripping out her peripheral IVs numerous times and refusing orders to stay in bed, constantly trying to sit up and get up and out of bed, thereby necessitating placement of mittens over both patient's hands on 03/16/2025, 3:11pm. Etiology of patient's behavioral issues above remains unclear: are the behavioral issues due to (a) severe sepsis due to recurrent, acute UTI, or are the behavioral issues simply a manifestation of (b) patient's chronic/severe, end-stage dementia with behavioral issues @ [facility] ([place]), or a combination of (a) and (b)? At this time, I am inclined to believe that patient's behavioral issues on 03/16/2025 are due to (b) patient's chronic/severe, end-stage dementia with behavioral issues @ [facility] ([place]), which, unfortunately, is largely untreatable, and can only be mitigated temporarily with olanzapine 2.5mg IM x 1 dose (03/15/2025, 11:12pm) in [facility] ER and olanzapine 2.5mg IM x 1 dose (03/16/2025, 12:49pm) in [facility] Med-Surg bed #S234-1. (6) Atrial arrhythmia: Plan: cf., EKG (03/15/2025, 3:55pm): AFIB @ 105, QTC 552, RBBB, no acute ST depressions/elevations (by my review). cf., EKG (06/30/2020, 11:49am): NSR @ 83, WA 156, QTC 462, no RBBB, no acute ST depressions/elevations (by my review). Patient has a decades-long history of benign ventricular ectopies (as reported by [facility] Dr. Volodymyr Bates on 10/09/2020, 12:19pm [facility] visit note). Patient also has a history of atrial arrhythmias in the past, although it remains unclear for just how long patient has had atrial arrhythmias in the past. Etiology of AFIB with HR 105 bpm (as noted on 03/15/2025, 3:55pm EKG) is most likely due to severe sepsis, which in turn, is due to recurrent, acute E. coli UTI. (7) GERD without esophagitis: Plan: Asymptomatic. Observe. (8) Acute metabolic encephalopathy: Plan: Etiology of acute metabolic encephalopathy remains unclear, but is most likely due to severe sepsis, which in turn, is due to recurrent, acute E. coli UTI. (9) Polycythemia: Plan: cf., Hb 18.0, MCV 94.7, MCHC 33.6 (03/15/2025, 3:55pm). cf., Hb 14.5, MCV 96.6, MCHC 32.3 (03/16/2025, 5:57am). Etiology of secondary polycythemia noted above was most likely due to acute dehydration, which in turn, was most likely due to recurrent, acute E. coli UTI. Subsequently, patient has been treated with IV fluid rehydration therapy, namely, 1. 1 liter of 0.9% NS @ 999 mL/hr (03/15/2025, 5:05pm). 2. 1 liter of 0.9% NS @ 999 mL/hr (03/15/2025, 5:30pm). 3. 1 liter of 0.9% NS @ 80 mL/hr (03/15/2025, 7:39pm). 4. 1 liter of 0.9% NS @ 80 mL/hr (03/16/2025, 8:10am). Subsequently, secondary polycythemia has resolved, as demonstrated by the decline in Hb level noted above. Subsequently, I have opted to hold off further IV fluid rehydration therapy in order to avoid cardiopulmonary embarrassment associated with indiscriminate IV fluid rehydration therapy in a patient who is underweight with BMI 16.4 (height 172.7 cm; weight 49.0 kg). Subsequently, I have opted to check repeat Hb level in the 03/17/2025 am. (10) Lactic acidosis: Plan: cf., Lactate #1 4.0 mmol/L (03/15/2025, 4:42pm). cf., Lactate #2 3.0 mmol/L (03/15/2025, 6:36pm). cf., Lactate #3 3.4 mmol/L (03/16/2025, 9:28am). cf., Lactate #4 (03/16/2025, 4:15pm). cf., Lactate #5 (03/17/2025, 6:00am). Etiology of acute lactic acidosis (as defined by lactic acid level > 4.0 mmol/L) noted above was most likely due to acute dehydration, which in turn, was most likely due to recurrent, acute E. coli UTI. Subsequently, patient has been treated with IV fluid rehydration therapy, namely, 1. 1 liter of 0.9% NS @ 999 mL/hr (03/15/2025, 5:05pm). 2. 1 liter of 0.9% NS @ 999 mL/hr (03/15/2025, 5:30pm). 3. 1 liter of 0.9% NS @ 80 mL/hr (03/15/2025, 7:39pm). 4. 1 liter of 0.9% NS @ 80 mL/hr (03/16/2025, 8:10am). Subsequently, acute lactic acidosis has resolved, as demonstrated by the decline in lactic acid levels noted above. Subsequently, I have opted to hold off further IV fluid rehydration therapy in order to avoid cardiopulmonary embarrassment associated with indiscriminate IV fluid rehydration therapy in a patient who is underweight with BMI 16.4 (height 172.7 cm; weight 49.0 kg). Subsequently, I have opted to check repeat lactic acid level on 03/16/2025, 4:15pm and again on 03/17/2025, 6:00am. (11) Lung nodule seen on imaging study: Plan: Incidental finding of "Small nodular opacity is seen in the right upper lung zone." (as noted on 03/15/2025, 3:44pm portable CXR). Etiology of this "Small nodular opacity is seen in the right upper lung zone." (as noted on 03/15/2025, 3:44pm portable CXR) remains unclear. Patient's son, Mr. Diego English ( ) does not wish to pursue any diagnostic workup of this "Small nodular opacity is seen in the right upper lung zone." (as noted on 03/15/2025, 3:44pm portable CXR). (12) DVT prophylaxis: Plan: Continue pharmacologic DVT prophylaxis with heparin 5000 units SQ q12. Plan 85yo female with history of severe dementia, resident of [facility] since 07/07/2023 - along with PVCs (has seen cardiology for such in the past) & basal cell skin cancers presents via EMS from [facility] due to worsening mental status, lethargy/sleeping excessively, not walking like usual, and eating/d rinking poorly. Symptoms started about 2 days ago by report. Upon presentation to [facility] she was hypothermic and tachycardic. U/a obtained in the ER was highly suggestive of UTI, lactate was elevated, and she had evidence of ASHLI. Clinical picture c/w severe sepsis. #severe sepsis with hypothermia - -has received 30ml/kg of isotonic fluids upon ER presentation -warming blanket applied for hypothermia -s/p rocephin IV for suspected UTI -given the severity of illness will broaden abx to IV cefepime; will also give a dose of IV daptomycin in the event of either MRSA or enterococcus in the urine -serial lactates have improved -continue basal fluids upon admission -repeat labs in am -follow blood/urine cx's #UTI, with ?pyelonephritis (has WBC casts on urine microscopy) - -check CT a/p - r/o stones, r/o signs of pyelonephritis -see above under "severe sepsis" #acute metabolic encephalopathy - -2nd to presumed UTI with resulting sepsis -supportive care -avoid benzos/avoid sedatives -cont seroquel at HS (chronic med) -if unable or unwilling to take - and if agitated, etc - would need to use IM zyprexa #elevated troponin - -myocardial demand ischemia in setting of rapid a.fib (or flutter) + severe sepsis #atrial arrhythmia - -a.fib vs a.flutter -rates are low 100s -fortunately BPs are stable but are low-normal -if rate control is needed would utilize IV digoxin 250mcg x 1-2 doses #acute kidney injury - -sepsis associated -serial labs -IV fluids -CT a/p - r/o any obstructive process #lactic acidosis - -2nd to severe sepsis -improving based on trend of lactates #end-stage/advanced dementia - -patient has late-stage dementia -at high risk of hospital delirium & agitation -see above re: antipsychotics #abnormal head CT - -?fungal sinusitis? -after this admission consider ENT referral #hypercalcemia - -likely due to volume contraction -hydrate, repeat total calcium level in am #polycythemia - -suspect due to hemoconcentration in setting of marked volume contraction -repeat CBC am #DVT proph - -heparin 5000 units BID pt's son and [id number] updated at bedside they confirm DNR/DNI status Admission and Anticipated Discharge Date Admission Date: March 15, 2025 Subjective "I want to go back. I want to go back." When I asked the patient to where she wants to go back, patient said: "I want to go back. I want to go back." Review of Systems Constitutional: Unavailable due to severe dementia with behavioral disturbances, manifested by patient's combative behavior with nursing staff, ripping out her peripheral IVs numerous times and refusing orders to stay in bed, constantly trying to sit up and get up and out of bed, thereby necessitating placement of mittens over both patient's hands on 03/16/2025, 3:11pm. Physical Exam Constitutional: General: Agitated, uncooperative, incoherent. Bellicose and belligerent, ripping out her peripheral IVs numerous times and refusing orders to stay in bed, constantly trying to sit up and get up and out of bed, thereby necessitating placement of mittens over both patient's hands on 03/16/2025, 3:11pm. Patient speaks in complete, fluent, and articulate, but completely nonsensical sentences without pause, interruption, cough, or wheeze. HEENT: Normocephalic, atraumatic. Pupils equally round and reactive to light. No nystagmus, gaze paresis, anisocoria, miosis, mydriasis, hyphema, scleral injection, conjunctivitis, or pterygium. No rhinorrhea. No otorrhea. No pharyngeal erythema, edema, or discharge. Neck: Supple, no stridor, bruit, or hepato-jugular reflux. No lid lag. No exophthalmos/proptosis. Jugular venous pressure is estimated to be 3 cm above the sternal angle of Denny, which in turn, is 5 cm above the level of the right atrium; with jugular venous pressure estimated to be 8 cm, then, there is no jugular venous distention on 03/16/2025. Lymphatics: Negative for anterior/posterior cervical, supraclavicular, infraclavicular, axillary, epitrochlear, or inguinal adenopathy. Chest: Symmetric rise and fall with respirations. Non-tender to palpation. Lungs: Clear to auscultation and percussion. No audible expiratory wheeze, egophony, pectoriloquy, increase in tactile fremitus, or flatness/dullness to percussion at the bases. Heart: Regular rate. Regular rhythm. S1 and S2 noted. No S3 or S4 summation gallop. No tripartite friction rub. Grade III/ early systolic murmur @ LLSB without radiation to the carotids, axilla, or back, and which remains invariant in regards to the respiratory cycle. Abdomen: Soft, non-tender, non-distended. No rebound, guarding, Woods's sign, or organomegaly. Bowel sounds auscultated in all 4 quadrants. Extremities: No clubbing or cyanosis or edema. 2+ pedal pulses bi laterally. Skin: No decubitus ulcer, exanthem, or enanthem. Genito-urinary: No urethral discharge. No allan catheter. Dry diaper. Neurology: Alert and oriented in regards to person, place, time, and situation. DTR+. 5/5 motor strength in all 4 extremities, both proximally and distally. No myoclonus, tremors, or tics. Psychiatry: No homicidal ideation. No suicidal ideation. No flat affect; smiles appropriately. Results & Data Results & Data Vital Signs (Past 12 Hours) Vital Signs Temp Pulse Pulse Resp BP Pulse Ox O2 Del Method 03/16/25 11:20 36.4 C L 92 H 18 119/76 98 Room Air 03/16/25 10:40 Room Air 03/16/25 09:42 86 03/16/25 07:11 36.3 C L 66 18 132/84 98 Room Air Laboratory Results U/A: cloudy yellow, LE 2+, nitrite-, WBC 21-50, RBC > 20, epithelial cells 3-5, bacteria 4+ (03/15/2025, 3:50pm). Urine culture (03/15/2025, 3:50pm): >100,000 cfu/mL E. coli (antibiotic sensitivities pending). Urine culture (10/02/2023, 7:00am): >100,000 cfu/mL E. coli (feliciano-sensitive). MRSA nares PCR- (03/15/2025, 9:12pm). Influenza A- B-, RSV-, COVID- (03/15/2025, 4:23pm). WBC 7.68, N63 L32 M3 E1 B1, Hb 18.0, MCV 94.7, MCHC 33.6, platelet 271 (03/15/2025, 3:55pm). WBC 9.33, no differential, Hb 14.5, MCV 96.6, MCHC 32.3, platelet 202 (03/16/2025, 5:57am). BUN 39, creatinine 1.88, GFR 26.21 (03/15/2025, 3:55pm). BUN 35, creatinine 1.41, GFR 37.01 (03/16/2025, 5:57am). Lactate #1 4.0 mmol/L (03/15/2025, 4:42pm). Lactate #2 3.0 mmol/L (03/15/2025, 6:36pm). Lactate #3 3.4 mmol/L (03/16/2025, 9:28am). Lactate #4 (03/16/2025, 4:15pm). Procalcitonin #1 0.05 ng/mL (03/15/2025, 3:55pm). Procalcitonin #2 0.05 ng/mL (03/16/2025, 9:28am). Troponin-I #1 46.1 pg/mL (03/15/2025, 3:55pm). Troponin-I #2 33.5 pg/mL (03/16/2025, 5:45pm). Diagnostic Findings Portable CXR (03/15/2025, 3:44pm): 1. No acute cardiopulmonary abnormalities are identified. 2. Hyperinflation of both lungs, likely COPD. 3. Small nodular opacity is seen in the right upper lung zone. further CT is recommended after clinical correlation. 4. Prominent interstitial lung markings, likely senile changes. 5. Cardiomegaly. CT brain without IV contrast (03/15/2025, 3:44pm): 1. No evidence of acute infarct, hemorrhage, or mass effect. 2. 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 3. Age-matched brain atrophic changes. 4. Mild left maxillary and frontal sinusitis with suspected right frontal superadded fungal infection, needs clinical correlation. 5. Early changes of stroke may not be detected on a CT scan. If there is a strong clinical suspicion of stroke, then an MRI with diffusion-weighted imaging is suggested. CT abd/pelvis without IV contrast (03/15/2025, 6:35pm): 1. No renal stones or hydronephrosis or signs of infection. 2. Few uterine fibroids, some of them show calcifications, largest is in the posterior wall, measuring 30 x 28 mm. 3. Colonic non-complicated diverticulosis. 4. Multiple splenic scattered tiny and few calcifications are likely sequelae of old granulomatous infection. 5. Left renal simple cortical cyst. EKG (03/15/2025, 3:55pm): AFIB @ 105, QTC 552, RBBB, no acute ST depressions/elevations (by my review). EKG (06/30/2020, 11:49am): NSR @ 83, WA 156, QTC 462, no RBBB, no acute ST depressions/elevations (by my review). TTE (03/16/2025, 6:28am): 1. LVEF 55-60%. Regional wall motion abnormalities including mild-moderate hypokinesis of inferior wall. 2. RV normal size and systolic function. 3. No . Mild AI. 4. Mild WA. 5. Mild-moderate MR. 6. Mild TR. RVSP normal. 7. Aortic root normal size. 8. No pericardial effusion. (as per [facility] Dr. Jacky Mcconnell). PG Care Time/CCT Total # of Minutes Spent Total Time Spent with Patient: Total time spent is greater than 50% in coordination of care (as documented) at patient's floor/unit and/or counseling patient: Coding Level of Care Code 83307 SUB INP/OBS CARE 3/50MIN Diagnoses Severe sepsis A41.9; R65.20 UTI (urinary tract infection) N39.0 Elevated troponin R79.89 ASHLI (acute kidney injury) N17.9 Dementia F03.90 Atrial arrhythmia I49.8 GERD without esophagitis K21.9 Acute metabolic encephalopathy G93.41 Polycythemia D75.1 Lactic acidosis E87.20 Lung nodule seen on imaging study R91.1 DVT prophylaxis Z29.9
[2025-03-17] MEDS: DIGOXIN 125 MCG in SYRINGE 9.5 ML IV STA ×2 (02:23→05:55)
[2025-03-17 07:20] LABS: Hematocrit (blood only) 41.9 % (37.0-47.0); Hemoglobin 13.8 g/dl (12.0-16.0); Immature Granulocytes # (auto) 0.03 K/uL (0.01-0.20); Immature Granulocytes % (auto) 0.4 %; Mean Corpuscular Hemoglobin 31.5 pg (25.0-34.0); Mean Corpuscular Volume 95.7 fL (80.0-100.0); Platelet Count 177 K/uL (130-400); RDW Standard Deviation 48.2 fL (36.4-46.3); Red Blood Count 4.38 M/uL (4.20-5.40); White Blood Count 7.02 K/ul (4.8-10.8)
[2025-03-17] MEDS ORDERED: ERTAPENEM 1000MG 1,000 MG/10 ML SYR IV SCH (08:00)
[2025-03-17 08:04] LABS: Anion Gap 7.0 (3-11); Blood Urea Nitrogen 25.0 mg/dl (6-23); Calcium 9.2 mg/dl (8.6-10.3); Carbon Dioxide 22.0 mmol/L (21-32); Chloride 113.0 mmol/L (98-107); Creatinine Clr Calc Pharmacy 24.8 ml/min; Glucose 104.0 mg/dl (70-99(Fasting)); Potassium 3.8 mmol/L (3.5-5.1); Sodium 142.0 mmol/L (136-145)
[2025-03-17] MEDS: ERTAPENEM 500MG 500 MG/5 ML SYR IV SCH (08:58)
--- NOTE | 2025-03-17 14:57 | Hospitalist Progress Note ---
Date of Service March 17, 2025 Assessment & Plan (1) Severe sepsis: Plan: No septic shock with BP remaining normal from 102/73 (03/15/2025, 3:30pm) to 119/76 (03/16/2025, 11:20am). Patient remains afebrile, but appears agitated, uncooperative, incoherent. Bellicose and belligerent, ripping out her peripheral IVs numerous times and refusing orders to stay in bed, constantly trying to sit up and get up and out of bed, thereby necessitating placement of mittens over both patient's hands on 03/16/2025, 3:11pm. Etiology of patient's behavioral issues above remains unclear: are the behavioral issues due to (a) severe sepsis due to recurrent, acute UTI, or are the behavioral issues simply a manifestation of (b) patient's chronic/severe, end-stage dementia with behavioral issues @ [facility] ([place], [place]), or a combination of (a) and (b)? At this time, I am inclined to believe that patient's behavioral issues on 03/16/2025 are due to (b) patient's chronic/severe, end-stage dementia with behavioral issues @ [facility] ([place], [place]), which, unfortunately, is largely untreatable, and can only be mitigated temporarily with olanzapine 2.5mg IM x 1 dose (03/15/2025, 11:12pm) in [facility] ER and olanzapine 2.5mg IM x 1 dose (03/16/2025, 12:49pm) in [facility] Med-Surg bed #S234-1. In the interim, patient has received the following antibiotics to treat her recurrent, acute E. coli UTI (as noted on 03/15/2025, 3:50pm urine culture): 1. ceftriaxone 2g IV x 1 dose (03/15/2025, 5:35pm). 2. daptomycin 350mg IV x 1 dose (03/15/2025, 7:39pm). 2. cefepime 2g IV x 1 dose (03/15/2025, 11:13pm). 3. cefepime 1g IV q12 x 2 doses (03/16/2025, 8:08am, 8:33pm). Patient was subsequently started on ertapenem 500mg IV daily (day #1/7 on 03/17/2025, 8:58am). I will check vitals, genito-urinary exam with Depends diaper changes qid while patient remains in [facility], WBC w/diff, lactic acid, procalcitonin, blood culture #1 (03/15/2025, 3:55pm), and blood culture #2 (03/15/2025, 4:42pm) in the 03/18/2025 am. (2) UTI (urinary tract infection): Plan: See bullet #1 above for details. (3) Elevated troponin: Plan: cf., Troponin-I #1 46.1 pg/mL (03/15/2025, 3:55pm). cf., Troponin-I #2 33.5 pg/mL (03/16/2025, 5:45pm). cf., EKG (03/15/2025, 3:55pm): AFIB @ 105, QTC 552, RBBB, no acute ST depressions/elevations (by my review). cf., EKG (06/30/2020, 11:49am): NSR @ 83, CA 156, QTC 462, no RBBB, no acute ST depressions/elevations (by my review). cf., TTE (03/16/2025, 6:28am): 1. LVEF 55-60%. Regional wall motion abnormalities including mild-moderate hypokinesis of inferior wall. 2. RV normal size and systolic function. 3. No . Mild AI. 4. Mild CA. 5. Mild-moderate MR. 6. Mild TR. RVSP normal. 7. Aortic root normal size. 8. No pericardial effusion. (as per [facility] Dr. Jacky Mcconnell). cf., BUN 39, creatinine 1.88 mg/dL, GFR 26.21 mL/min (03/15/2025, 3:55pm). cf., BUN 35, creatinine 1.41 mg/dL, GFR 37.01 mL/min (03/16/2025, 5:57am). cf.,BUN 25, creatinine 1.36 mg/dL, GFR 38.65 mL/min (03/17/2025, 6:54am). Etiology of nominal troponin-I elevation is most probably due to demand ischemia, which in turn, is due to: (a) severe sepsis due to recurrent, acute E. coli UTI in a severely demented patient with behavioral issues who wears Depends diapers everyday @ [facility] ([place], [place]). 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 Volodymyr Bates on 10/09/2020, 12:19pm [facility] Clinic visit note). (c) acute kidney injury with admission creatinine 1.88 mg/dL (, 3:55pm), superimposed on CKD stage III with historical creatinine 1.22 mg/dL (08/30/2022, 10:50pm). Hence, I surmise that patient's nominal troponin-I elevation is consistent with acute type II NSTEMI, for which no further evaluation/intervention is warranted on 03/16/2025. (4) ASHLI (acute kidney injury): Plan: cf., BUN 39, creatinine 1.88 mg/dL, GFR 26.21 mL/min (03/15/2025, 3:55pm). cf., BUN 35, creatinine 1.41 mg/dL, GFR 37.01 mL/min (03/16/2025, 5:57am). cf.,BUN 25, creatinine 1.36 mg/dL, GFR 38.65 mL/min (03/17/2025, 6:54am). cf., CKD stage III with historical creatinine 1.22 mg/dL (08/30/2022, 10:50pm). Etiology of acute kidney injury is most probably due to acute dehydration, which in turn, is due to recurrent, acute E. coli UTI in a severely demented patient with behavioral issues who wears Depends diapers everyday @ [facility] ([place], [place]). Acute kidney injury has been treated with IV fluid rehydration therapy, namely, 1. 1 liter of 0.9% NS @ 999 mL/hr (03/15/2025, 5:05pm). 2. 1 liter of 0.9% NS @ 999 mL/hr (03/15/2025, 5:30pm). 3. 1 liter of 0.9% NS @ 80 mL/hr (03/15/2025, 7:39pm). 4. 1 liter of 0.9% NS @ 80 mL/hr (03/16/2025, 8:10am). Subsequently, acute kidney injury appears to be resolving, as demonstrated by the decline in creatinine level noted above. Subsequently, I have opted to hold off further IV fluid rehydration therapy in order to avoid cardiopulmonary embarrassment associated with indiscriminate IV fluid rehydration therapy in a patient who is underweight with BMI 16.4 (height 172.7 cm; weight 49.0 kg). Subsequently, I have opted to check repeat creatinine level in the 03/18/2025 am. (5) Dementia: Plan: Patient remains afebrile, but appears agitated, uncooperative, incoherent. Bellicose and belligerent, ripping out her peripheral IVs numerous times and refusing orders to stay in bed, constantly trying to sit up and get up and out of bed, thereby necessitating placement of mittens over both patient's hands on 03/16/2025, 3:11pm. Etiology of patient's behavioral issues above remains unclear: are the behavioral issues due to (a) severe sepsis due to recurrent, acute UTI, or are the behavioral issues simply a manifestation of (b) patient's chronic/severe, end-stage dementia with behavioral issues @ [facility] ([place], [place]), or a combination of (a) and (b)? At this time, I am inclined to believe that patient's behavioral issues on 03/16/2025 are due to (b) patient's chronic/severe, end-stage dementia with behavioral issues @ [facility] ([place], [place]), which, unfortunately, is largely untreatable, and can only be mitigated temporarily with olanzapine 2.5mg IM x 1 dose (03/15/2025, 11:12pm) in [facility] ER and olanzapine 2.5mg IM x 1 dose (03/16/2025, 12:49pm) in [facility] Med-Surg bed #S234-1. (6) Atrial arrhythmia: Plan: cf., EKG (03/15/2025, 3:55pm): AFIB @ 105, QTC 552, RBBB, no acute ST depressions/elevations (by my review). cf., EKG (06/30/2020, 11:49am): NSR @ 83, CA 156, QTC 462, no RBBB, no acute ST depressions/elevations (by my review). Patient has a decades-long history of benign ventricular ectopies (as reported by [facility] Dr. Volodymyr Bates on 10/09/2020, 12:19pm [facility] Clinic visit note). Patient also has a history of atrial arrhythmias in the past, although it remains unclear for just how long patient has had atrial arrhythmias in the past. Etiology of AFIB with HR 105 bpm (as noted on 03/15/2025, 3:55pm EKG) is most likely due to severe sepsis, which in turn, is due to recurrent, acute E. coli UTI. (7) GERD without esophagitis: Plan: Asymptomatic. Observe. (8) Acute metabolic encephalopathy: Plan: Etiology of acute metabolic encephalopathy remains unclear, but is most likely due to severe sepsis, which in turn, is due to recurrent, acute E. coli UTI. (9) Polycythemia: Plan: cf., Hb 18.0, MCV 94.7, MCHC 33.6 (03/15/2025, 3:55pm). cf., Hb 14.5, MCV 96.6, MCHC 32.3 (03/16/2025, 5:57am). Etiology of secondary polycythemia noted above was most likely due to acute dehydration, which in turn, was most likely due to recurrent, acute E. coli UTI. Subsequently, patient has been treated with IV fluid rehydration therapy, namely, 1. 1 liter of 0.9% NS @ 999 mL/hr (03/15/2025, 5:05pm). 2. 1 liter of 0.9% NS @ 999 mL/hr (03/15/2025, 5:30pm). 3. 1 liter of 0.9% NS @ 80 mL/hr (03/15/2025, 7:39pm). 4. 1 liter of 0.9% NS @ 80 mL/hr (03/16/2025, 8:10am). Subsequently, secondary polycythemia has resolved, as demonstrated by the decline in Hb level noted above. Subsequently, I have opted to hold off further IV fluid rehydration therapy in order to avoid cardiopulmonary embarrassment associated with indiscriminate IV fluid rehydration therapy in a patient who is underweight with BMI 16.4 (height 172.7 cm; weight 49.0 kg). Subsequently, I have opted to check repeat Hb level in the 03/17/2025 am. (10) Lactic acidosis: Plan: cf., Lactate #1 4.0 mmol/L (03/15/2025, 4:42pm). cf., Lactate #2 3.0 mmol/L (03/15/2025, 6:36pm). cf., Lactate #3 3.4 mmol/L (03/16/2025, 9:28am). cf., Lactate #4 (03/16/2025, 4:15pm). cf., Lactate #5 (03/17/2025, 6:00am). Etiology of acute lactic acidosis (as defined by lactic acid level > 4.0 mmol/L) noted above was most likely due to acute dehydration, which in turn, was most likely due to recurrent, acute E. coli UTI. Subsequently, patient has been treated with IV fluid rehydration therapy, namely, 1. 1 liter of 0.9% NS @ 999 mL/hr (03/15/2025, 5:05pm). 2. 1 liter of 0.9% NS @ 999 mL/hr (03/15/2025, 5:30pm). 3. 1 liter of 0.9% NS @ 80 mL/hr (03/15/2025, 7:39pm). 4. 1 liter of 0.9% NS @ 80 mL/hr (03/16/2025, 8:10am). Subsequently, acute lactic acidosis has resolved, as demonstrated by the decline in lactic acid levels noted above. Subsequently, I have opted to hold off further IV fluid rehydration therapy in order to avoid cardiopulmonary embarrassment associated with indiscriminate IV fluid rehydration therapy in a patient who is underweight with BMI 16.4 (height 172.7 cm; weight 49.0 kg). Subsequently, I have opted to check repeat lactic acid level on 03/16/2025, 4:15pm and again on 03/17/2025, 6:00am. (11) Lung nodule seen on imaging study: Plan: Incidental finding of "Small nodular opacity is seen in the right upper lung zone." (as noted on 03/15/2025, 3:44pm portable CXR). Etiology of this "Small nodular opacity is seen in the right upper lung zone." (as noted on 03/15/2025, 3:44pm portable CXR) remains unclear. Patient's son, Mr. Diego English ( ) does not wish to pursue any diagnostic workup of this "Small nodular opacity is seen in the right upper lung zone." (as noted on 03/15/2025, 3:44pm portable CXR). (12) DVT prophylaxis: Plan: Continue pharmacologic DVT prophylaxis with heparin 5000 units SQ q12. Plan 85yo female with history of severe dementia, resident of [facility] since 07/07/2023 - along with PVCs (has seen cardiology for such in the past) & basal cell skin cancers presents via EMS from [facility] due to worsening mental status, lethargy/sleeping excessively, not walking like usual, and eating/drinking poorly. Symptoms started about 2 days ago by report. Upon presentation to [facility] she was hypothermic and tachycardic. U/a obtained in the ER was highly suggestive of UTI, lactate was elevated, and she had evidence of ASHLI. Clinical picture c/w severe sepsis. #severe sepsis with hypothermia - -has received 30ml/kg of isotonic fluids upon ER presentation -warming blanket applied for hypothermia -s/p rocephin IV for suspected UTI -given the severity of illness will broaden abx to IV cefepime; will also give a dose of IV daptomycin in the event of either MRSA or enterococcus in the urine -serial lactates have improved -continue basal fluids upon admission -repeat labs in am -follow blood/urine cx's #UTI, with ?pyelonephritis (has WBC casts on urine microscopy) - -check CT a/p - r/o stones, r/o signs of pyelonephritis -see above under "severe sepsis" #acute metabolic encephalopathy - -2nd to presumed UTI with resulting sepsis -supportive care -avoid benzos/avoid sedatives -cont seroquel at HS (chronic med) -if unable or unwilling to take - and if agitated, etc - would need to use IM zyprexa #elevated troponin - -myocardial demand ischemia in setting of rapid a.fib (or flutter) + severe sepsis #atrial arrhythmia - -a.fib vs a.flutter -rates are low 100s -fortunately BPs are stable but are low-normal -if rate control is needed would utilize IV digoxin 250mcg x 1-2 doses #acute kidney injury - -sepsis associated -serial labs -IV fluids -CT a/p - r/o any obstructive process #lactic acidosis - -2nd to severe sepsis -improving based on trend of lactates #end-stage/advanced dementia - -patient has late-stage dementia -at high risk of hospital delirium & agitation -see above re: antipsychotics #abnormal head CT - -?fungal sinusitis? -after this admission consider ENT referral #hypercalcemia - -likely due to volume contraction -hydrate, repeat total calcium level in am #polycythemia - -suspect due to hemoconcentration in setting of marked volume contraction -repeat CBC am #DVT proph - -heparin 5000 units BID pt's son and [id number] updated at bedside they confirm DNR/DNI status Admission and Anticipated Discharge Date Admission Date: March 15, 2025 Subjective "I want to go back. I want to go back." When I asked the patient to where she wants to go back, patient said: "I want to go back. I want to go back." Review of Systems Constitutional: Unavailable due to severe dementia with behavioral disturbances, manifested by patient's combative behavior with nursing staff, ripping out her peripheral IVs numerous times and refusing orders to stay in bed, constantly trying to sit up and get up and out of bed, thereby necessitating placement of mittens over both patient's hands on 03/16/2025, 3:11pm. Physical Exam Constitutional: General: Agitated, uncooperative, incoherent. Bellicose and belligerent, ripping out her peripheral IVs numerous times and refusing orders to stay in bed, constantly trying to sit up and get up and out of bed, thereby necessitating placement of mittens over both patient's hands on 03/16/2025, 3:11pm. Patient speaks in complete, fluent, and articulate, but completely nonsensical sentences without pause, interruption, cough, or wheeze. HEENT: Normocephalic, atraumatic. Pupils equally round and reactive to light. No nystagmus, gaze paresis, anisocoria, miosis, mydriasis, hyphema, scleral injection, conjunctivitis, or pterygium. No rhinorrhea. No otorrhea. No pharyngeal erythema, edema, or discharge. Neck: Supple, no stridor, bruit, or hepato-jugular reflux. No lid lag. No exophthalmos/proptosis. Jugular venous pressure is estimated to be 3 cm above the sternal angle of Denny, which in turn, is 5 cm above the level of the right atrium; with jugular venous pressure estimated to be 8 cm, then, there is no jugular venous distention on 03/17/2025. Lymphatics: Negative for anterior/posterior cervical, supraclavicular, infraclavicular, axillary, epitrochlear, or inguinal adenopathy. Chest: Symmetric rise and fall with respirations. Non-tender to palpation. Lungs: Clear to auscultation and percussion. No audible expiratory wheeze, egophony, pectoriloquy, increase in tactile fremitus, or flatness/dullness to percussion at the bases. Heart: Regular rate. Regular rhythm. S1 and S2 noted. No S3 or S4 summation gallop. No tripartite friction rub. Grade III/ early systolic murmur @ LLSB without radiation to the carotids, axilla, or back, and which remains invariant in regards to the respiratory cycle. Abdomen: Soft, non-tender, non-distended. No rebound, guarding, Woods's sign, or organomegaly. Bowel sounds auscultated in all 4 quadrants. Extremities: No clubbing or cyanosis or edema. 2+ pedal pulses bilaterally. Skin: No decubitus ulcer, exanthem, or enanthem. Genito-urinary: No urethral discharge. No allan catheter. Dry diaper. Neurology: Alert and oriented in regards to person, place, time, and s ituation. DTR+. 5/5 motor strength in all 4 extremities, both proximally and distally. No myoclonus, tremors, or tics. Psychiatry: No homicidal ideation. No suicidal ideation. No flat affect; smiles appropriately. Results & Data Results & Data Vital Signs (Past 12 Hours) Vital Signs Temp Pulse Pulse Resp BP Pulse Ox O2 Del Method 03/17/25 11:27 36.4 C L 54 L 18 115/52 L 98 Room Air 03/17/25 08:18 Room Air 03/17/25 07:51 36.4 C L 46 L 18 149/99 H 94 Room Air 03/17/25 07:09 98 H 03/17/25 06:05 102 H 20 03/17/25 05:55 142 H 03/17/25 03:15 36.6 C 95 H 20 140/90 95 Room Air Laboratory Results U/A: cloudy yellow, LE 2+, nitrite-, WBC 21-50, RBC > 20, epithelial cells 3-5, bacteria 4+ (03/15/2025, 3:50pm). Urine culture (03/15/2025, 3:50pm): >100,000 cfu/mL E. coli (ESBL). Urine culture (10/02/2023, 7:00am): >100,000 cfu/mL E. coli (feliciano-sensitive). MRSA nares PCR- (03/15/2025, 9:12pm). Influenza A- B-, RSV-, COVID- (03/15/2025, 4:23pm). WBC 7.68, N63 L32 M3 E1 B1, Hb 18.0, MCV 94.7, MCHC 33.6, platelet 271 (03/15/2025, 3:55pm). WBC 9.33, no differential, Hb 14.5, MCV 96.6, MCHC 32.3, platelet 202 (03/16/2025, 5:57am). WBC 7.02, N75 L27 M5 E1 B1, Hb 13.8, MCV 95.7, MCHC 32.9, platelet 177 (03/17/2025, 6:54am). BUN 39, creatinine 1.88, GFR 26.21 (03/15/2025, 3:55pm). BUN 35, creatinine 1.41, GFR 37.01 (03/16/2025, 5:57am). BUN 25, creatinine 1.36, GFR 38.65 (03/17/2025, 6:54am). Lactate #1 4.0 mmol/L (03/15/2025, 4:42pm). Lactate #2 3.0 mmol/L (03/15/2025, 6:36pm). Lactate #3 3.4 mmol/L (03/16/2025, 9:28am). Lactate #4 2.1 mmol/L (03/16/2025, 4:21pm). Lactate #5 2.1 mmol/L (03/17/2025, 6:54am). Procalcitonin #1 0.05 ng/mL (03/15/2025, 3:55pm). Procalcitonin #2 0.05 ng/mL (03/16/2025, 9:28am). Procalcitonin #3 0.06 ng/mL (03/17/2025, 6:54am). Troponin-I #1 46.1 pg/mL (03/15/2025, 3:55pm). Troponin-I #2 33.5 pg/mL (03/16/2025, 5:45pm). Diagnostic Findings Portable CXR (03/15/2025, 3:44pm): 1. No acute cardiopulmonary abnormalities are identified. 2. Hyperinflation of both lungs, likely COPD. 3. Small nodular opacity is seen in the right upper lung zone. further CT is recommended after clinical correlation. 4. Prominent interstitial lung markings, likely senile changes. 5. Cardiomegaly. CT brain without IV contrast (03/15/2025, 3:44pm): 1. No evidence of acute infarct, hemorrhage, or mass effect. 2. 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 3. Age-matched brain atrophic changes. 4. Mild left maxillary and frontal sinusitis with suspected right frontal superadded fungal infection, needs clinical correlation. 5. Early changes of stroke may not be detected on a CT scan. If there is a strong clinical suspicion of stroke, then an MRI with diffusion-weighted imaging is suggested. CT abd/pelvis without IV contrast (03/15/2025, 6:35pm): 1. No renal stones or hydronephrosis or signs of infection. 2. Few uterine fibroids, some of them show calcifications, largest is in the posterior wall, measuring 30 x 28 mm. 3. Colonic non-complicated diverticulosis. 4. Multiple splenic scattered tiny and few calcifications are likely sequelae of old granulomatous infection. 5. Left renal simple cortical cyst. EKG (03/15/2025, 3:55pm): AFIB @ 105, QTC 552, RBBB, no acute ST depressions/elevations (by my review). EKG (06/30/2020, 11:49am): NSR @ 83, CA 156, QTC 462, no RBBB, no acute ST depressions/elevations (by my review). TTE (03/16/2025, 6:28am): 1. LVEF 55-60%. Regional wall motion abnormalities including mild-moderate hypokinesis of inferior wall. 2. RV normal size and systolic function. 3. No . Mild AI. 4. Mild CA. 5. Mild-moderate MR. 6. Mild TR. RVSP normal. 7. Aortic root normal size. 8. No pericardial effusion. (as per [facility] Dr. Jacky Mcconnell). PG Care Time/CCT Total # of Minutes Spent Total Time Spent with Patient: Total time spent is greater than 50% in coordination of care (as documented) at patient's floor/unit and/or counseling patient: Coding Level of Care Code 12163 SUB INP/OBS CARE 2/35MIN Diagnoses Severe sepsis A41.9; R65.20 UTI (urinary tract infection) N39.0 Elevated troponin R79.89 ASHLI (acute kidney injury) N17.9 Dementia F03.90 Atrial arrhythmia I49.8 GERD without esophagitis K21.9 Acute metabolic encephalopathy G93.41 Polycythemia D75.1 Lactic acidosis E87.20 Lung nodule seen on imaging study R91.1 DVT prophylaxis Z29.9
[2025-03-17] MEDS: DEXTROSE 50% 50 ML SYRINGE IV ONE (16:48)
[2025-03-18 04:05] VITALS: RESP 18; TEMP 97.3; O2SAT 97
--- NOTE | 2025-03-18 11:05 | Discharge Summary ---
Discharge Summary Date of Service March 18, 2025 Principal Dx & Hospital Course #1 = Principal Diagnosis (1) Severe sepsis: No septic shock with BP remaining normal from 102/73 (03/15/2025, 3:30pm) to 119/76 (03/16/2025, 11:20am). Patient remains afebrile, but appeared on 03/17/2025, agitated, uncooperative, incoherent. Bellicose and belligerent, ripping out her peripheral IVs numerous times and refusing orders to stay in bed, constantly trying to sit up and get up and out of bed, thereby necessitating placement of mittens over both patient's hands on 03/16/2025, 3:11pm. Etiology of patient's behavioral issues above remains unclear: are the behavioral issues due to (a) severe sepsis due to recurrent, acute UTI, or are the behavioral issues simply a manifestation of (b) patient's chronic/severe, end-stage dementia with behavioral issues @ [facility] ([place]), or a combination of (a) and (b)? At this time, I am inclined to believe that patient's behavioral issues on 03/16/2025 are due to (b) patient's chronic/severe, end-stage dementia with behavioral issues @ [facility] ([place]), which, unfortunately, is largely untreatable, and can only be mitigated temporarily with olanzapine 2.5mg IM x 1 dose (03/15/2025, 11:12pm) in [facility] ER and olanzapine 2.5mg IM x 1 dose (03/16/2025, 12:49pm) in [facility] Med-Surg bed #S234-1. In the interim, patient has received the following antibiotics to treat her recurrent, acute E. coli UTI (as noted on 03/15/2025, 3:50pm urine culture): 1. ceftriaxone 2g IV x 1 dose (03/15/2025, 5:35pm). 2. daptomycin 350mg IV x 1 dose (03/15/2025, 7:39pm). 2. cefepime 2g IV x 1 dose (03/15/2025, 11:13pm). 3. cefepime 1g IV q12 x 2 doses (03/16/2025, 8:08am, 8:33pm). Patient subsequently received ertapenem 500mg IV daily (day #1/7 on 03/17/2025, 8:58am). Patient subsequently refused ertapenem 500mg IV daily (day #2/ on 03/18/2025, 8:30am). Patient subsequently refused to undergo blood draw to determine WBC w/diff, lactic acid, procalcitonin levels in the 03/18/2025 am. Patient subsequently was discharged back to [facility] on 03/18/2025 with an electronic prescription for augmentin 875mg/125mg PO q12, #12 tablets (03/18/2025 - 03/23/2025), no refills, transmitted to her [facility], [address] [place] [id number], on 03/18/2025, prior to discharge back to [facility] on 03/18/2025. Of note, the likelihood that patient will refuse to take augmentin 875mg/125mg PO q12 at [facility] on 03/18/2025 remains very high, just as patient refuses to eat, drink, or follow any commands of nursing staff or hospitalist on service. To this end, patient and patient's family were advised to see patient's PCP, Mr. Matt Ruiz, PHYSICIAN EXECUTIVE-C, within 3-5 days of hospital discharge to discuss hospice/comfort measures only/morphine sublingual only @ [facility], and do not hospitalize ever again. (2) UTI (urinary tract infection): See bullet #1 above for details. (3) Elevated troponin: cf., Troponin-I #1 46.1 pg/mL (03/15/2025, 3:55pm). cf., Troponin-I #2 33.5 pg/mL (03/16/2025, 5:45pm). cf., EKG (03/15/2025, 3:55pm): AFIB @ 105, QTC 552, RBBB, no acute ST depressions/elevations (by my review). cf., EKG (06/30/2020, 11:49am): NSR @ 83, RI 156, QTC 462, no RBBB, no acute ST depressions/elevations (by my review). cf., TTE (03/16/2025, 6:28am): 1. LVEF 55-60%. Regional wall motion abnormalities including mild-moderate hypokinesis of inferior wall. 2. RV normal size and systolic function. 3. No . Mild AI. 4. Mild RI. 5. Mild-moderate MR. 6. Mild TR. RVSP normal. 7. Aortic root normal size. 8. No pericardial effusion. (as per [facility] Dr. Jacky Mcconnell). cf., BUN 39, creatinine 1.88 mg/dL, GFR 26.21 mL/min (03/15/2025, 3:55pm). cf., BUN 35, creatinine 1.41 mg/dL, GFR 37.01 mL/min (03/16/2025, 5:57am). cf.,BUN 25, creatinine 1.36 mg/dL, GFR 38.65 mL/min (03/17/2025, 6:54am). Etiology of nominal troponin-I elevation is most probably due to demand ischemia, which in turn, is due to: (a) severe sepsis due to recurrent, acute E. coli UTI in a severely demented patient with behavioral issues who wears [employer] diapers everyday @ [facility] ([place], [place]). 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 Volodymyr Bates on 10/09/2020, 12:19pm [facility] Clinic visit note). (c) acute kidney injury with admission creatinine 1.88 mg/dL (, 3:55pm), superimposed on CKD stage III with historical creatinine 1.22 mg/dL (08/30/2022, 10:50pm). Hence, I surmised that patient's nominal troponin-I elevation is consistent with acute type II NSTEMI, for which no further evaluation/intervention was warranted while patient remained in [facility]. (4) ASHLI (acute kidney injury): cf., BUN 39, creatinine 1.88 mg/dL, GFR 26.21 mL/min (03/15/2025, 3:55pm). cf., BUN 35, creatinine 1.41 mg/dL, GFR 37.01 mL/min (03/16/2025, 5:57am). cf.,BUN 25, creatinine 1.36 mg/dL, GFR 38.65 mL/min (03/17/2025, 6:54am). cf., CKD stage III with historical creatinine 1.22 mg/dL (08/30/2022, 10:50pm). Etiology of acute kidney injury is most probably due to acute dehydration, which in turn, is due to recurrent, acute E. coli UTI in a severely demented patient with behavioral issues who wears [employer]ends diapers everyday @ [facility] ([place], [place]). Acute kidney injury was treated with IV fluid rehydration therapy, namely, 1. 1 liter of 0.9% NS @ 999 mL/hr (03/15/2025, 5:05pm). 2. 1 liter of 0.9% NS @ 999 mL/hr (03/15/2025, 5:30pm). 3. 1 liter of 0.9% NS @ 80 mL/hr (03/15/2025, 7:39pm). 4. 1 liter of 0.9% NS @ 80 mL/hr (03/16/2025, 8:10am). Subsequently, acute kidney injury appears to be RESOLVING, as demonstrated by the decline in creatinine level noted above. Subsequently, I opted to hold off further IV fluid rehydration therapy in order to: (a) avoid cardiopulmonary embarrassment associated with indiscriminate IV fluid rehydration therapy in a patient who is underweight with BMI 16.4 (height 172.7 cm; weight 49.0 kg), and (b) avoid hematoma formation as patient actually ripped out all of her peripheral IVs numerous times while in [facility], due to her chronic/severe, end-stage dementia with behavioral issues @ [facility] ([place], [place]), which, unfortunately, is largely untreatable. Subsequently, patient refused to undergo any further blood draws and started kicking and lunging at nursing staff and nurse office numerous times. (5) Dementia: Patient remains afebrile, but appears agitated, uncooperative, incoherent throughout hospitalization from admission date 03/15/2025 to discharge date 03/18/2025. Bellicose and belligerent, ripping out her peripheral IVs numerous times and refusing orders to stay in bed, constantly trying to sit up and get up and out of bed, thereby necessitating placement of mittens over both patient's hands on 03/16/2025, 3:11pm. Etiology of patient's behavioral issues above remains unclear: are the behavioral issues due to (a) severe sepsis due to recurrent, acute UTI, or are the behavioral issues simply a manifestation of (b) patient's chronic/severe, end-stage dementia with behavioral issues @ [facility] ([place]), or a combination of (a) and (b)? At this time, I am inclined to believe that patient's behavioral issues on 03/16/2025 are due to (b) patient's chronic/severe, end-stage dementia with behavioral issues @ [facility] ([place]), which, unfortunately, is largely untreatable, and can only be mitigated temporarily with olanzapine 2.5mg IM x 1 dose (03/15/2025, 11:12pm) in [facility] ER and olanzapine 2.5mg IM x 1 dose (03/16/2025, 12:49pm) in [facility] Med-Surg bed #S234-1. (6) Atrial arrhythmia: cf., EKG (03/15/2025, 3:55pm): AFIB @ 105, QTC 552, RBBB, no acute ST depressions/elevations (by my review). cf., EKG (06/30/2020, 11:49am): NSR @ 83, RI 156, QTC 462, no RBBB, no acute ST depressions/elevations (by my review). Patient has a decades-long history of benign ventricular ectopies (as reported by CAR[facility] Dr. Volodymyr Bates on 10/09/2020, 12:19pm [facility] Clinic visit note). Patient also has a history of atrial arrhythmias in the past, although it remains unclear for just how long patient has had atrial arrhythmias in the [facility]. Etiology of AFIB with HR 105 bpm (as noted on 03/15/2025, 3:55pm EKG) is most likely due to severe sepsis, which in turn, is due to recurrent, acute E. coli UTI. (7) GERD without esophagitis: Asymptomatic. Observe. (8) Acute metabolic encephalopathy: Etiology of acute metabolic encephalopathy remains unclear, but is most likely due to severe sepsis, which in turn, is due to recurrent, acute E. coli UTI. (9) Polycythemia: cf., Hb 18.0, MCV 94.7, MCHC 33.6 (03/15/2025, 3:55pm). cf., Hb 14.5, MCV 96.6, MCHC 32.3 (03/16/2025, 5:57am). cf., Hb 13.8, MCV 95.7, MCHC 32.9 (03/17/2025, 6:54am). Etiology of secondary polycythemia noted above was most likely due to acute dehydration, which in turn, was most likely due to recurrent, acute E. coli UTI. Subsequently, patient has been treated with IV fluid rehydration therapy, namely, 1. 1 liter of 0.9% NS @ 999 mL/hr (03/15/2025, 5:05pm). 2. 1 liter of 0.9% NS @ 999 mL/hr (03/15/2025, 5:30pm). 3. 1 liter of 0.9% NS @ 80 mL/hr (03/15/2025, 7:39pm). 4. 1 liter of 0.9% NS @ 80 mL/hr (03/16/2025, 8:10am). Subsequently, secondary polycythemia RESOLVED, as demonstrated by the decline in Hb level noted above. Subsequently, I opted to hold off further IV fluid rehydration therapy in order to: (a) avoid cardiopulmonary embarrassment associated with indiscriminate IV fluid rehydration therapy in a patient who is underweight with BMI 16.4 (height 172.7 cm; weight 49.0 kg), and (b) avoid hematoma formation as patient actually ripped out all of her peripheral IVs numerous times while in [facility], due to her chronic/severe, end-stage dementia with behavioral issues @ [facility] ([place], [place]), which, unfortunately, is largely untreatable. Subsequently, patient refused to undergo any further blood draws and started kicking and lunging at nursing staff and nurse office numerous times. (10) Lactic acidosis: cf., Lactate #1 4.0 mmol/L (03/15/2025, 4:42pm). cf., Lactate #2 3.0 mmol/L (03/15/2025, 6:36pm). cf., Lactate #3 3.4 mmol/L (03/16/2025, 9:28am). cf., Lactate #4 2.1 mmol/L (03/16/2025, 4:21pm). cf., Lactate #5 2.1 mmol/L (03/17/2025, 6:54am). Etiology of acute lactic acidosis (as defined by lactic acid level > 4.0 mmol/L) noted above was most likely due to acute dehydration, which in turn, was most likely due to recurrent, acute E. coli UTI. Subsequently, patient has been treated with IV fluid rehydration therapy, namely, 1. 1 liter of 0.9% NS @ 999 mL/hr (03/15/2025, 5:05pm). 2. 1 liter of 0.9% NS @ 999 mL/hr (03/15/2025, 5:30pm). 3. 1 liter of 0.9% NS @ 80 mL/hr (03/15/2025, 7:39pm). 4. 1 liter of 0.9% NS @ 80 mL/hr (03/16/2025, 8:10am). Subsequently, acute lactic acidosis RESOLVED, as demonstrated by the decline in lactic acid levels noted above. Subsequently, I opted to hold off further IV fluid rehydration therapy in order to: (a) avoid cardiopulmonary embarrassment associated with indiscriminate IV fluid rehydration therapy in a patient who is underweight with BMI 16.4 (height 172.7 cm; weight 49.0 kg), and (b) avoid hematoma formation as patient actually ripped out all of her peripheral IVs numerous times while in [facility], due to her chronic/severe, end-stage dementia with behavioral issues @ [facility] ([place], [place]), which, unfortunately, is largely untreatable. Subsequently, patient refused to undergo any further blood draws and started kicking and lunging at nursing staff and nurse office numerous times. (11) Lung nodule seen on imaging study: Incidental finding of "Small nodular opacity is seen in the right upper lung zone." (as noted on 03/15/2025, 3:44pm portable CXR). Etiology of this "Small nodular opacity is seen in the right upper lung zone." (as noted on 03/15/2025, 3:44pm portable CXR) remains unclear. Patient's son, Mr. Diego English ( ) does not wish to pursue any diagnostic workup of this "Small nodular opacity is seen in the right upper lung zone." (as noted on 03/15/2025, 3:44pm portable CXR). (12) DVT prophylaxis: Patient received pharmacologic DVT prophylaxis with heparin 5000 units SQ q12 while in [facility]. Patient will not continue this medication on hospital discharge back to [facility] on 03/18/2025. 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 Symptoms started about 2 days ago by report. Upon presentation to [facility] she was hypothermic and tachycardic. U/a obtained in the ER was highly suggestive of UTI, lactate was elevated, and she had evidence of ASHLI. Clinical picture c/w severe sepsis. #severe sepsis with hypothermia - -has received 30ml/kg of isotonic fluids upon ER presentation -warming blanket applied for hypothermia -s/p rocephin IV for suspected UTI -given the severity of illness will broaden abx to IV cefepime; will also give a dose of IV daptomycin in the event of either MRSA or enterococcus in the urine -serial lactates have improved -continue basal fluids upon admission -repeat labs in am -follow blood/urine cx's #UTI, with ?pyelonephritis (has WBC casts on urine microscopy) - -check CT a/p - r/o stones, r/o signs of pyelonephritis -see above under "severe sepsis" #acute metabolic encephalopathy - -2nd to presumed UTI with resulting sepsis -supportive care -avoid benzos/avoid sedatives -cont seroquel at HS (chronic med) -if unable or unwilling to take - and if agitated, etc - would need to use IM zyprexa #elevated troponin - -myocardial demand ischemia in setting of rapid a.fib (or flutter) + severe sepsis #atrial arrhythmia - -a.fib vs a.flutter -rates are low 100s -fortunately BPs are stable but are low-normal -if rate control is needed would utilize IV digoxin 250mcg x 1-2 doses #acute kidney injury - -sepsis associated -serial labs -IV fluids -CT a/p - r/o any obstructive process #lactic acidosis - -2nd to severe sepsis -improving based on trend of lactates #end-stage/advanced dementia - -patient has late-stage dementia -at high risk of hospital delirium & agitation -see above re: antipsychotics #abnormal head CT - -?fungal sinusitis? -after this admission consider ENT referral #hypercalcemia - -likely due to volume contraction -hydrate, repeat total calcium level in am #polycythemia - -suspect due to hemoconcentration in setting of marked volume contraction -repeat CBC am #DVT proph - -heparin 5000 units BID pt's son and [id number] updated at bedside they confirm DNR/DNI status Admission HPI Per Admitting Provider 85yo female with history of severe dementia, resident of [facility] - along with PVCs (has seen cardiology for such in the past) & basal cell skin can cers presents via EMS from [facility] due to worsening mental status, lethargy/sleeping excessively, not walking like usual, and eating/drinking poorly. Symptoms started about 2 days ago by report. Upon presentation to [facility] she was hypothermic and tachycardic. U/a obtained in the ER was highly suggestive of UTI, lactate was elevated, and she had evidence of ASHLI. Clinical picture c/w severe sepsis. When I did my admission assessment the patient's son & [id number] were present at bedside. They report she has been at [facility] for about 2 years. Her dementia started at least 4-5 years ago. There are many days when she thinks her son is her . She is not oriented to place/time. She is not on a special diet or thickened liquids. [facility]. Son reports he is unaware of any prior kidney stone. Discharge Exam Constitutional General: Agitated, uncooperative, incoherent on 03/16/2025 through 03/18/2025. Bellicose and belligerent, ripping out her peripheral IVs numerous times and refusing orders to stay in bed, constantly trying to sit up and get up and out of bed, thereby necessitating placement of mittens over both patient's hands on 03/16/2025, 3:11pm. Patient speaks in complete, fluent, and articulate, but completely nonsensical sentences without pause, interruption, cough, or wheeze. HEENT: Normocephalic, atraumatic. Pupils equally round and reactive to light. No nystagmus, gaze paresis, anisocoria, miosis, mydriasis, hyphema, scleral injection, conjunctivitis, or pterygium. No rhinorrhea. No otorrhea. No pharyngeal erythema, edema, or discharge. Neck: Supple, no stridor, bruit, or hepato-jugular reflux. No lid lag. No exophthalmos/proptosis. Jugular venous pressure is estimated to be 3 cm above the sternal angle of Denny, which in turn, is 5 cm above the level of the right atrium; with jugular venous pressure estimated to be 8 cm, then, there is no jugular venous distention on 03/18/2025. Lymphatics: Negative for anterior/posterior cervical, supraclavicular, infraclavicular, axillary, epitrochlear, or inguinal adenopathy. Chest: Symmetric rise and fall with respirations. Non-tender to palpation. Lungs: Clear to auscultation and percussion. No audible expiratory wheeze, egophony, pectoriloquy, increase in tactile fremitus, or flatness/dullness to percussion at the bases. Heart: Regular rate. Regular rhythm. S1 and S2 noted. No S3 or S4 summation gallop. No tripartite friction rub. Grade III/ early systolic murmur @ LLSB without radiation to the carotids, axilla, or back, and which remains invariant in regards to the respiratory cycle. Abdomen: Soft, non-tender, non-distended. No rebound, guarding, Woods's sign, or organomegaly. Bowel sounds auscultated in all 4 quadrants. Extremities: No clubbing or cyanosis or edema. 2+ pedal pulses bilaterally. Skin: No decubitus ulcer, exanthem, or enanthem. Genito-urinary: No urethral discharge. No allan catheter. Dry diaper. Neurology: Alert and oriented in regards to person, place, time, and situation. DTR+. 5/5 motor strength in all 4 extremities, both proximally and distally. No myoclonus, tremors, or tics. Psychiatry: No homicidal ideation. No suicidal ideation. No flat affect; smiles appropriately. Discharge Plan Discharge Items Patient Disposition: [facility] Reason For Visit: SEPSIS, UTI, ALTERED MENTAL STATUS Discharge Diagnosis: 1. DNR/DNI. 2. Severe sepsis, not septic shock, due to acute ESBL E. coli UTI. 3. Acute toxic metabolic encephalopathy, due to patient's chronic/severe, end- stage dementia with behavioral issues @ [facility] ([place], [place]) with patient remaining belligerent, bellicose, refusing to take her medications, refusing to eat food, refusing to drink water. Condition on Discharge: Serious Activity: Resume your previous activity Lifting: Gradually increase as tolerated Bathing: No limitations Exercise/Sports: Gradually increase as tolerated Weightbearing: Full weightbearing Non-emergency contact: Primary Care Provider Call non-emergency contact if: you have any medication questions Follow-up/Referrals: Matt Ruiz NP-C [Primary Care Provider] - Diet: Regular Addtl Attending Provider Instructions: See your PCP, CARLTON Cole, within 3-5 days of hospital discharge to discuss hospice/comfort measures only/morphine sublingual only @ [facility], and do not hospitalize ever again. Pending Studies at Discharge: Yes Studies:: See your PCP, CARLTON Cole, within 3-5 days of hospital discharge to discuss hospice/comfort measures only/morphine sublingual only @ [facility], and do not hospitalize ever again. Stand-Alone Forms: My [employer] Accessories, Smoking Cessation Skilled Items Patient informed of condition?: Yes DNR: Yes Discharge Level of Care: Other Communicable Disease: No Discharge Prognosis: Deteriorating Lines: None Urinary Catheter: No Medications and DC Order Prescriptions: New amoxicillin-pot clavulanate 875-125 mg tablet 1 tab PO Q12H Qty: 12 0RF Continued quetiapine [Seroquel] 25 mg Tablet 25 mg PO HS acetaminophen [Tylenol] 325 mg Tablet 650 mg PO Q6H PRN (Reason: PAIN/FEVER) loperamide 2 mg Tablet 2 mg PO DIRECTED PRN (Reason: Diarrhea) docusate sodium 100 mg Capsule 100 mg PO BID PRN (Reason: Constipation) Discharge Orders: Discharge Order (Routine); Ordered 03/18/25 Ordered By: Peter Nelson Admission Data Admit Date/Time: 03/15/25 18:42 Attending Provider: Peter Nelson Admit Provider: Armando Santiago Primary Care Provider: Matt Ruiz Other Providers: Armando Santiago; [facility],Hospital Hospital Stay Data Consultations 03/15/25 17:18 ED Decision to Admit Stat Diagnostic Imagining Performed 03/15/25 15:44 CT head/brain wo con Stat 03/15/25 18:35 CT abd pelvis wo con Stat Pending Results Patient Have Any Pending Studies at Discharge: Yes Discharge Instructions Given to Patient (Per Discharging Provider) See your PCP, Sj Ruiz, PHYSICIAN EXECUTIVE-C, within 3-5 days of hospital discharge to discuss hospice/comfort measures only/morphine sublingual only @ [facility], and do not hospitalize ever again. Total Time Total Time Spent Total Time Spent (In Minutes): 35 minutes. Of this time period, 19 minutes were spent in coordinating patient's discharge. Coding Level of Care Code 95305 INP/OBS DISCH >30 MIN Diagnoses Severe sepsis A41.9; R65.20 UTI (urinary tract infection) N39.0 Elevated troponin R79.89 ASHLI (acute kidney injury) N17.9 Dementia F03.90 Atrial arrhythmia I49.8 GERD without esophagitis K21.9 Acute metabolic encephalopathy G93.41 Polycythemia D75.1 Lactic acidosis E87.20 Lung nodule seen on imaging study R91.1 DVT prophylaxis Z29.9
[2025-03-18 15:35] VITALS: BP 114/82; PULSE 85
== END 2025-03-18 15:35 | disposition home or self-care (01) | DRG 871 ==
LOC: ED 15:31 → SUATTDRO 18:42 → 2S 18:42

== ENCOUNTER 2025-04-02 14:45 | Inpatient (IN) ==
--- NOTE | 2025-04-02 15:00 | Emergency Department Note ---
Impression & Plan Syncope, Elevated troponin, Hyperkalemia ED Provider Note NAME: TASNEEM BENZ AGE: 85 SEX: F : 1940 ARRIVES VIA: Ambulance INFORMANT: Patient ED PROVIDER(S): Kaiden Peo DO CHIEF COMPLAINT: Fall HPI: Patient is an 85-year-old female with a past medical history of an atrial arrhythmia, metabolic encephalopathy, ASHLI, altered mental status, ventricular ectopy who presents to the ER following a fall with several syncopal episodes. Per report she fell by the [employer]. After this it was noted that she passed out several times. EMS was called. Patient is pleasantly demented per EMS who provides additional history. She denies any pain. No headache or neck pain. No chest pain or shortness of breath. No belly pain. No nausea, vomiting or diarrhea. ADDITIONAL HISTORY OBTAINED: Per HPI Chronic Medical/Social Conditions Affecting Care: Per HPI PAST MEDICAL HISTORY:See Below PAST SURGICAL HISTORY:See Below FAMILY HISTORY:See Below SOCIAL HISTORY:See Below HOME MEDICATIONS:See Below ALLERGIES:See Below VITALS:See Below PHYSICAL EXAMINATION: GENERAL: alert, well appearing, well nourished, no distress, non-toxic HEAD: normal cephalic, atraumatic EYE EXAM: normal conjunctiva, PERRL and EOM's grossly intact OROPHARYNX: no exudate, no erythema, lips, buccal mucosa, and tongue normal and mucous membranes are moist EARS: TMs clear b/l NECK: supple, no nuchal rigidity, no adenopathy, non-tender CHEST: stable to compression anteriorly and posteriorly LUNGS: clear to auscultation. Normal chest wall mechanics HEART: no murmurs, S1 normal and S2 normal ABDOMEN: abdomen soft, non-tender, normo-active bowel sounds, no masses, no rebound or guarding. PELVIS: stable to compression anteriorly and posteriorly BACK: Back is symmetrical on inspection and there is no deformity, no midline tenderness, no CVA tenderness. UPPER EXTREMITIES: full active and passive range of motion of all joints without tenderness to palpation LOWER EXTREMITIES: full active and passive range of motion of all joints without tenderness to palpation NEURO EXAM: Sitting up in bed oriented to person but not place or time, cranial nerves II-XII grossly intact, normal speech, no gross weakness of arms, no gross weakness of legs. MEDICAL DECISION MAKING: Patient is an 85-year-old female who presents to the ER for the above-stated complaint. IV was established and blood work was obtained. Labs show no significant leukocytosis or anemia. Hyperkalemia 5.3. Creatinine 1.3. LFTs bilirubin unremarkable. Troponin elevated 25. Lipase normal. CT head and cervical spine showed no acute pathology. Chest x-ray unremarkable. With the multiple syncopal episodes per report from EMS patient was discussed with the hospitalist for further evaluation management and treatment. Consults/Care Managements Discussions: Per [facility] Triage Nursing notes reviewed. Limited review of prior medical records performed Vital Signs: reviewed and remarkable for no significant abnormalities Differential diagnosis: Differential diagnosis includes etiologies such as vasovagal event, infection, hypoglycemia, electrolyte abnormalities, cardiac sources, intracerebral event, toxicologic, neurologic, as well as others were entertained. ER treatment provided: See below Diagnostics interpreted by me include EKG and cardiac monitoring as listed below: -Cardiac Monitoring: An order was placed for continuous cardiac monitoring. The monitor shows a rate of 101 with A-fib rhythm. -ECG: A-fib rate of 109 PVCs QTc 463 -Laboratory studies:Interpreted by me as stated above in MDM and shown below. Imaging studies: Xrays: As interpreted by me: Portable AP upright 1 view of the chest shows no focal infiltrate CTs show: none Procedures:none Critical Care: None Past Med/Surg History Problem List (Updated 04/02/25 @ 17:21 by Kaiden Poe DO) Hyperkalemia (Acute) Elevated troponin (Acute) Syncope (Acute) Hyperkalemia Confusion Dementia with agitation Lung nodule seen on imaging study Lactic acidosis Polycythemia DVT prophylaxis Acute metabolic encephalopathy Atrial arrhythmia UTI (urinary tract infection) Severe sepsis Elevated lactic acid level (Acute) Elevated troponin (Acute) ASHLI (acute kidney injury) (Acute) Acute UTI (urinary tract infection) (Acute) AMS (altered mental status) (Acute) Abnormal ECG Memory loss Ventricular ectopy present on electrocardiography Medical History (Updated 04/02/25 @ 17:21 by Kaiden Poe DO) PVCs (premature ventricular contractions) Dyslipidemia Osteoarthritis GERD without esophagitis Dementia Basal cell carcinoma Family History (Updated 03/15/25 @ 20:22 by Armando Santiago MD) Mother Breast cancer Social History (Updated 03/15/25 @ 20:25 by Armando Santiago MD) Smoking Status: Unknown if ever smoked Second Hand Exposure: No; Do You Dip or Chew Tobacco: No; Hx Alcohol Use: No Hx Substance Use: No Preferred Language: Emirati Communication Ability: Impaired Pharmaceutical Physician Required: No Beliefs That Will Affect Care: None marital status: / Current Living Situation: Longterm 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 How many Children do You have: 1 How many Children do You have Comment: son other: served 4 years in the in the 1960s Feels Safe at Home: Yes Assistive Devices: None Allergies Allergies Allergy/AdvReac Type Severity Reaction Status Date / Time No Known Allergies Allergy Verified 04/02/25 16:05 Home Meds Home Medications Medication Instructions Recorded Confirmed acetaminophen 325 mg tablet 650 mg PO Q6H PRN PAIN/FEVER 03/15/25 04/02/25 (Tylenol) docusate sodium 100 mg capsule 100 mg PO DAILY PRN Constipation 03/15/25 04/02/25 loperamide 2 mg tablet 2 mg PO Q8 PRN Diarrhea 03/15/25 04/02/25 quetiapine 25 mg tablet (Seroquel) 25 mg PO HS 03/15/25 04/02/25 Results & Data (ED) Vital Signs Vital Signs - 24 hr 04/02/25 14:59 04/02/25 14:59 04/02/25 14:59 Temperature 36.4 C L 36.4 C L Temperature Source Oral Oral Pulse Rate 103 H 103 H Pulse Rate [Apical] 103 H Respiratory Rate 13 13 13 Blood Pressure 131/87 Blood Pressure [Right Arm] 131/87 Blood Pressure Mean 101 Blood Pressure Mean [Right Arm] 101 Pulse Oximetry 98 98 98 Oxygen Delivery Method Room Air Room Air Room Air Sepsis Recent Fever Within 48 Hours No Sepsis New/Unexplained Change in Mental Status N/A Sepsis Action Taken by Nursing No Action Required 04/02/25 15:44 Temperature Temperature Source Pulse Rate 97 H Pulse Rate [Apical] Respiratory Rate Blood Pressure Blood Pressure [Right Arm] Blood Pressure Mean Blood Pressure Mean [Right Arm] Pulse Oximetry Oxygen Delivery Method Sepsis Recent Fever Within 48 Hours Sepsis New/Unexplained Change in Mental Status Sepsis Action Taken by Nursing Laboratory Data 04/02/25 14:22 04/02/25 14:22 Lab Results 04/02/25 Range/Units 14:22 WBC 5.33 (4.8-10.8) K/ul RBC 4.14 L (4.20-5.40) M/uL Hgb 13.3 (12.0-16.0) g/dl Hct 41.0 (37.0-47.0) % MCV 99.0 (80.0-100.0) fL MCH 32.1 (25.0-34.0) pg MCHC 32.4 (32.0-36.0) g/dL RDW Std Deviation 54.4 H (36.4-46.3) fL RDW Coeff of Iram 15.5 H (11.5-14.5) % Plt Count 200 (130-400) K/uL MPV 9.6 (9.4-12.4) fL Immature Gran % (Auto) 0.4 % Neut % (Auto) 67.7 % Lymph % (Auto) 24.8 % [place] % (Auto) 4.7 % Eos % (Auto) 1.5 % Baso % (Auto) 0.9 % Neut # (Auto) 3.61 (1.40-6.50) K/uL Lymph # (Auto) 1.32 (1.20-3.40) K/uL [place] # (Auto) 0.25 (0.11-0.59) K/uL Eos # (Auto) 0.08 (0.00-0.50) K/uL Baso # (Auto) 0.05 (0.00-0.20) K/uL Immature Gran # (Auto) 0.02 (0.01-0.20) K/uL Sodium 143 (136-145) mmol/L Potassium 5.3 H (3.5-5.1) mmol/L Chloride 112 H (98-107) mmol/L Carbon Dioxide 26 (21-32) mmol/L Anion Gap 5 (3-11) BUN 19 (6-23) mg/dl Creatinine 1.33 H (0.6-1.2) mg/dl Est Cr Clr Drug Dosing Not Reportable eGFR 39.70 BUN/Creatinine Ratio 14.3 (10-20) Glucose 125 H (70-99(Fasting)) mg/dl Calcium 9.3 (8.6-10.3) mg/dl Total Bilirubin 1.0 (0.2-1.0) mg/dl AST 33 (13-39) U/L ALT 27 (7-52) U/L Alkaline Phosphatase 69 (34-104) U/L Troponin I High Sens 25.7 H (0-14) pg/ml Total Protein 5.7 L (6.0-8.3) gm/dl Albumin 3.6 (3.4-5.0) gm/dl Globulin 2.1 L (2.5-4.0) gm/dl Albumin/Globulin Ratio 1.7 (0.9-2) Lipase 15 (11-82) U/L Imaging Data Radiologist's Impression: Cervical Spine CT 04/02/25 14:52 CT cervical spine wo con CT DOSE: 1074.9 mGy.cm CLINICAL HISTORY: syncope. COMPARISON: None TECHNIQUE: Multiple axial CT images of the cervical spine were obtained without contrast. A dose lowering technique was utilized adhering to the principles of ALARA. FINDINGS: There are mild degenerative changes at the lower cervical spine. No fracture or subluxation seen. Multinodular thyroid goiter is partially visualized. IMPRESSION: 1. No cervical spinal fractures seen. 2. Suggest follow-up thyroid ultrasound for the multinodular goiter if not previously obtained. ACT 112: Negative or not required by law. The above report was generated using voice recognition software. It may contain grammatical, syntax or spelling errors. Electronically signed by: Manish Peralta M.D. 04/02/2025 3:18 PM Chest X-Ray 04/02/25 14:52 XR chest 1V portable CLINICAL HISTORY: Chest pain, nonspecific COMPARISON STUDY: 03/15/2025 FINDINGS: Stable prominent cardiomegaly without pulmonary vascular congestion. No consolidation or pleural effusion seen. No pneumothorax. IMPRESSION: No acute findings. ACT 112: Negative or not required by law. Electronically signed by: Manish Peralta M.D. 04/02/2025 3:[address] 04/02/25 14:52 CT SCAN OF THE BRAIN WITHOUT IV CONTRAST CLINICAL HISTORY: Syncope COMPARISON STUDY: CT of the brain dated 03/15/2025 TECHNIQUE: Unenhanced axial CT scan of the brain is performed from the vertex to the skull base. Images are reviewed in the axial, sagittal, coronal planes. A dose lowering technique was utilized adhering to the principles of ALARA. FINDINGS: Brain parenchyma: There is age-related involutional change noting moderate subcortical and periventricular microangiopathic disease. There is no hemorrhage, mass effect, or evidence of acute territorial ischemia by CT criteria. Moreno-white matter differentiation is preserved. No extra-axial fluid collection is seen. Ventricles, sulci, cisterns: Prominent secondary to involutional change. Intracranial vasculature: There is atherosclerotic calcification of the cavernous carotid arteries. Calvarium: Unremarkable. Sinuses and mastoids: The visualized paranasal sinuses are clear. The mastoid air cells are well pneumatized. Orbits: The bony orbits are grossly intact. There are bilateral ocular lens implants. IMPRESSION: There is no hemorrhage, mass effect, or evidence of acute territorial ischemia by CT criteria. ACT 112: Negative or not required by law. Electronically signed by: Diego Houston M.D. 04/02/2025 3:23 PM Discharge Plan Visit Data Chief Complaint: Fall ED Provider: Kaiden Poe Discharge Problem: Syncope, Elevated troponin, Hyperkalemia Condition: Fair Forms Stand Alone Forms: [facility] panpan Prescriptions Prescriptions: No Action quetiapine [Seroquel] 25 mg Tablet 25 mg PO HS acetaminophen [Tylenol] 325 mg Tablet 650 mg PO Q6H PRN (Reason: PAIN/FEVER) loperamide 2 mg Tablet 2 mg PO Q8 MDD 4 CAPS PRN (Reason: Diarrhea) docusate sodium 100 mg Capsule 100 mg PO DAILY PRN (Reason: Constipation) Referrals Referrals: Matt Ruiz, FITTING ROOM ATTENDANT-C [Outside Practitioners] - Discharge Problem: Syncope Qualifiers: Syncope type: unspecified Qualified Code(s): R55 - Syncope and collapse
[2025-04-02 15:11] LABS: Hematocrit (blood only) 41.0 % (37.0-47.0); Hemoglobin 13.3 g/dl (12.0-16.0); Immature Granulocytes # (auto) 0.02 K/uL (0.01-0.20); Immature Granulocytes % (auto) 0.4 %; Mean Corpuscular Hemoglobin 32.1 pg (25.0-34.0); Mean Corpuscular Volume 99.0 fL (80.0-100.0); Platelet Count 200 K/uL (130-400); RDW Standard Deviation 54.4 fL (36.4-46.3); Red Blood Count 4.14 M/uL (4.20-5.40); White Blood Count 5.33 K/ul (4.8-10.8)
--- NOTE | 2025-04-02 15:11 | XRay Report ---
XR chest 1V portable CLINICAL HISTORY: Chest pain, nonspecific COMPARISON STUDY: 03/15/2025 FINDINGS: Stable prominent cardiomegaly without pulmonary vascular congestion. No consolidation or pl eural effusion seen. No pneumothorax. IMPRESSION: No acute findings. ACT 112: Negative or not required by law. Electronically signed by: Manish Peralta M.D. 04/02/2025 3:10 PM
--- NOTE | 2025-04-02 15:19 | CT Scan Report ---
CT cervical spine wo con CT DOSE: 1074.9 mGy.cm CLINICAL HISTORY: syncope. COMPARISON: None TECHNIQUE: Multiple axial CT images of the cervical spine were obtained without contrast. A dose low ering technique was utilized adhering to the principles of ALARA. FINDINGS: There are mild degenerative changes at the lower cervical spine. No fracture or subluxation seen. Multinodular thyroid goiter is partially visualized. IMPRESSION: 1. No cervical spinal fractures seen. 2. Suggest follow-up thyroid ultrasound for the multinodular goiter if not previously obtained. ACT 112: Negative or not required by law. The above report was generated using voice recognition software. It may contain grammatical, syntax o r spelling errors. Electronically signed by: Manish Peralta M.D. 04/02/2025 3:18 PM
--- NOTE | 2025-04-02 15:24 | CT Scan Report ---
CT SCAN OF THE BRAIN WITHOUT IV CONTRAST CLINICAL HISTORY: Syncope COMPARISON STUDY: CT of the brain dated 03/15/2025 TECHNIQUE: Unenhanced axial CT scan of the brain is performed from the vertex to the skull base. Imag es are reviewed in the axial, sagittal, coronal planes. A dose lowering technique was utilized adheri ng to the principles of ALARA. FINDINGS: Brain parenchyma: There is age-related involutional change noting moderate subcortical and periventri cular microangiopathic disease. There is no hemorrhage, mass effect, or evidence of acute territorial ischemia by CT criteria. Moreno-white matter differentiation is preserved. No extra-axial fluid collec tion is seen. Ventricles, sulci, cisterns: Prominent secondary to involutional change. Intracranial vasculature: There is atherosclerotic calcification of the cavernous carotid arteries. Calvarium: Unremarkable. Sinuses and mastoids: The visualized paranasal sinuses are clear. The mastoid air cells are well pneu matized. Orbits: The bony orbits are grossly intact. There are bilateral ocular lens implants. IMPRESSION: There is no hemorrhage, mass effect, or evidence of acute territorial ischemia by CT jaime courtney. ACT 112: Negative or not required by law. Electronically signed by: Diego Houston M.D. 04/02/2025 3:23 PM
[2025-04-02 15:29] LABS: Alanine Aminotransferase 27 U/L (7-52); Albumin Globulin Ratio 1.7 (0.9-2); Alkaline Phosphatase 69 U/L (34-104); Anion Gap 5 (3-11); Bilirubin,Total 1.0 mg/dl (0.2-1.0); Blood Urea Nitrogen 19 mg/dl (6-23); Calcium 9.3 mg/dl (8.6-10.3); Carbon Dioxide 26 mmol/L (21-32); Chloride 112 mmol/L (98-107); Globulin 2.1 gm/dl (2.5-4.0); Glucose 125 mg/dl (70-99(Fasting)); Lipase 15 U/L (11-82); Potassium 5.3 mmol/L (3.5-5.1); Sodium 143 mmol/L (136-145); Total Protein 5.7 gm/dl (6.0-8.3)
--- NOTE | 2025-04-02 16:18 | History & Physical Report ---
Date of Service April 02, 2025 Assessment & Plan (1) Dementia with agitation: (2) Confusion: (3) Elevated troponin: (4) Hyperkalemia: Plan The patient is an 85-year-old female with a past medical history including dementia, polycythemia, atrial arrhythmia, urinary tract infection, memory loss. She was brought to the emergency department after staff noted her having multiple syncopal episodes and passing out at [facility] earlier in the day today. Workup in the emergency department included normal CT scan of head, and a normal CT scan of cervical spine. Troponin is mildly elevated 25.7, and patient was referred for evaluation for admission for [facility] Dementia with agitation/confusion- Unclear etiology at this time CT scan head was negative, CT scan cervical spine was negative. Chest x-ray is negative No urine specimen is obtained yet. If infection is present we will treat Continue Seroquel 25 mg p.o. at bedtime Elevated troponin- The patient will be admitted to telemetry for serial cardiac enzymes, serial EKG's, cardiac rhythm monitoring Monitor for arrhythmia as potential cause of syncope Placed on LR at 80 mL/h x 1 L Hyperkalemia/mild dehydration- IV fluids as above Recheck laboratories in the a.m. History of Present Illness Chief Complaint: The patient presents to the emergency department from [facility] due to a fall that occurred with several syncopal episodes reported by staff there. She reportedly fell by the [employer]. EMS was then called, patient was noted to be pleasantly demented, and was brought to the emergency department for assessment. In the emergency department CT scan of head, and CT scan of cervical spine were negative. Primary Care Provider: Tahira Toribio PA-C The patient is an 85-year-old female with a past medical history including dementia, polycythemia, atrial arrhythmia, urinary tract infection, memory loss. She was brought to the emergency department after staff noted her having multiple syncopal episodes and passing out at [facility] earlier in the day today. Workup in the emergency department included normal CT scan of head, and a normal CT scan of cervical spine. Troponin is mildly elevated 25.7, and patient was referred for evaluation for admission for [facility] Allergies Allergy/AdvReac Type Severity Reaction Status Date / Time No Known Allergies Allergy Verified 04/02/25 16:05 Home Medications Medication Instructions Recorded Confirmed Type acetaminophen 325 mg tablet 650 mg PO Q6H PRN PAIN/FEVER 03/15/25 04/02/25 History (Tylenol) docusate sodium 100 mg capsule 100 mg PO DAILY PRN Constipation 03/15/25 04/02/25 History loperamide 2 mg tablet 2 mg PO Q8 PRN Diarrhea 03/15/25 04/02/25 History quetiapine 25 mg tablet (Seroquel) 25 mg PO HS 03/15/25 04/02/25 History Past Med/Surg History Problem List (Updated 04/02/25 @ 16:27 by Mauro Putnam MD) Hyperkalemia Confusion Dementia with agitation Lung nodule seen on imaging study Lactic acidosis Polycythemia DVT prophylaxis Acute metabolic encephalopathy Atrial arrhythmia UTI (urinary tract infection) Severe sepsis Elevated lactic acid level (Acute) Elevated troponin (Acute) ASHLI (acute kidney injury) (Acute) Acute UTI (urinary tract infection) (Acute) AMS (altered mental status) (Acute) Abnormal ECG Memory loss Ventricular ectopy present on electrocardiography Medical History (Updated 04/02/25 @ 16:27 by Mauro Putnam MD) PVCs (premature ventricular contractions) Dyslipidemia Osteoarthritis GERD without esophagitis Dementia Basal cell carcinoma Family History (Updated 03/15/25 @ 20:22 by Armando Santiago MD) Mother Breast cancer Social History (Updated 03/15/25 @ 20:25 by Armando Santiago MD) Smoking Status: Unknown if ever smoked Second Hand Exposure: No; Do You Dip or Chew Tobacco: No; Hx Alcohol Use: No Hx Substance Use: No Preferred Language: Albanian Communication Ability: Impaired Doctor Of Chiropractic Required: No Beliefs That Will Affect Care: None marital status: / Current Living Situation: Penitentiary 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 HEENT--PERRL, EOMI, mucous membranes and oropharynx mildly dry. Neck--supple. No JVD. No bruits. Thyroid normal, trachea midline, no adenopathy. Heart--tachycardic and regular. No murmurs, rubs or gallops. Lungs--clear bilaterally, no respiratory distress, no accessory muscle use. Abdomen--normal bowel sounds and soft. Nontender. Nondistended, no hernias or masses, no organomegaly. Extremities--no cyanosis or clubbing. No edema. There are good distal pulses b/l. Dermatologic--normal skin turgor, normal color, no abnormal lymph nodes, no rash. Neurologic--cranial nerves II through XII grossly intact. Rheumatologic--normal range of motion. Psychiatric--normal affect. Results & Data Results & Data Vital Signs (Past 12 Hours) Vital Signs Temp Pulse Pulse Resp BP BP Pulse Ox 04/02/25 15:44 97 H 04/02/25 14:59 103 H 13 98 04/02/25 14:59 36.4 C L 103 H 13 131/87 98 04/02/25 14:59 36.4 C L 103 H 13 131/87 98 O2 Del Method 04/02/25 15:44 04/02/25 14:59 Room Air 04/02/25 14:59 Room Air 04/02/25 14:59 Room Air Laboratory Results Laboratory Results WBC 5.33 K/ul (4.8-10.8) 04/02/25 14:22 RBC 4.14 M/uL (4.20-5.40) L 04/02/25 14:22 Hgb 13.3 g/dl (12.0-16.0) 04/02/25 14:22 Hct 41.0 % (37.0-47.0) 04/02/25 14:22 MCV 99.0 fL (80.0-100.0) 04/02/25 14:22 MCH 32.1 pg (25.0-34.0) 04/02/25 14:22 MCHC 32.4 g/dL (32.0-36.0) 04/02/25 14:22 RDW Std Deviation 54.4 fL (36.4-46.3) H 04/02/25 14:22 RDW Coeff of Iram 15.5 % (11.5-14.5) H 04/02/25 14:22 Plt Count 200 K/uL (130-400) 04/02/25 14:22 MPV 9.6 fL (9.4-12.4) 04/02/25 14:22 Immature Gran % (Auto) 0.4 % 04/02/25 14:22 Neut % (Auto) 67.7 % 04/02/25 14:22 Lymph % (Auto) 24.8 % 04/02/25 14:22 [place] % (Auto) 4.7 % 04/02/25 14:22 Eos % (Auto) 1.5 % 04/02/25 14:22 Baso % (Auto) 0.9 % 04/02/25 14:22 Neut # (Auto) 3.61 K/uL (1.40-6.50) 04/02/25 14:22 Lymph # (Auto) 1.32 K/uL (1.20-3.40) 04/02/25 14:22 [place] # (Auto) 0.25 K/uL (0.11-0.59) 04/02/25 14:22 Eos # (Auto) 0.08 K/uL (0.00-0.50) 04/02/25 14:22 Baso # (Auto) 0.05 K/uL (0.00-0.20) 04/02/25 14:22 Immature Gran # (Auto) 0.02 K/uL (0.01-0.20) 04/02/25 14:22 Sodium 143 mmol/L (136-145) 04/02/25 14:22 Potassium 5.3 mmol/L (3.5-5.1) H 04/02/25 14:22 Chloride 112 mmol/L (98-107) H 04/02/25 14:22 Carbon Dioxide 26 mmol/L (21-32) 04/02/25 14:22 Anion Gap 5 (3-11) 04/02/25 14:22 BUN 19 mg/dl (6-23) 04/02/25 14:22 Creatinine 1.33 mg/dl (0.6-1.2) H 04/02/25 14:22 Est Cr Clr Drug Dosing Not Reportable 04/02/25 14:22 eGFR 39.70 04/02/25 14:22 BUN/Creatinine Ratio 14.3 (10-20) 04/02/25 14:22 Glucose 125 mg/dl (70-99(Fasting)) H 04/02/25 14:22 Calcium 9.3 mg/dl (8.6-10.3) 04/02/25 14:22 Total Bilirubin 1.0 mg/dl (0.2-1.0) 04/02/25 14:22 AST 33 U/L (13-39) 04/02/25 14:22 ALT 27 U/L (7-52) 04/02/25 14:22 Alkaline Phosphatase 69 U/L (34-104) 04/02/25 14:22 Troponin I High Sens 25.7 pg/ml (0-14) H 04/02/25 14:22 Total Protein 5.7 gm/dl (6.0-8.3) L 04/02/25 14:22 Albumin 3.6 gm/dl (3.4-5.0) 04/02/25 14:22 Globulin 2.1 gm/dl (2.5-4.0) L 04/02/25 14:22 Albumin/Globulin Ratio 1.7 (0.9-2) 04/02/25 14:22 Lipase 15 U/L (11-82) 04/02/25 14:[address] 04/02/25 14:52 CT cervical spine wo con CT DOSE: 1074.9 mGy.cm CLINICAL HISTORY: syncope. COMPARISON: None TECHNIQUE: Multiple axial CT images of the cervical spine were obtained without contrast. A dose lowering technique was utilized adhering to the principles of ALARA. FINDINGS: There are mild degenerative changes at the lower cervical spine. No fracture or subluxation seen. Multinodular thyroid goiter is partially visualized. IMPRESSION: 1. No cervical spinal fractures seen. 2. Suggest follow-up thyroid ultrasound for the multinodular goiter if not pre viously obtained. ACT 112: Negative or not required by law. The above report was generated using voice recognition software. It may contain grammatical, syntax or spelling errors. Electronically signed by: Manish Peralta M.D. 04/02/2025 3:18 PM Chest X-Ray 04/02/25 14:52 XR chest 1V portable CLINICAL HISTORY: Chest pain, nonspecific COMPARISON STUDY: 03/15/2025 FINDINGS: Stable prominent cardiomegaly without pulmonary vascular congestion. No consolidation or pleural effusion seen. No pneumothorax. IMPRESSION: No acute findings. ACT 112: Negative or not required by law. Electronically signed by: Manish Peralta M.D. 04/02/2025 3:[address] 04/02/25 14:52 CT SCAN OF THE BRAIN WITHOUT IV CONTRAST CLINICAL HISTORY: Syncope COMPARISON STUDY: CT of the brain dated 03/15/2025 TECHNIQUE: Unenhanced axial CT scan of the brain is performed from the vertex to the skull base. Images are reviewed in the axial, sagittal, coronal planes. A dose lowering technique was utilized adhering to the principles of ALARA. FINDINGS: Brain parenchyma: There is age-related involutional change noting moderate subcortical and periventricular microangiopathic disease. There is no hemorrhage, mass effect, or evidence of acute territorial ischemia by CT criteria. Moreno-white matter differentiation is preserved. No extra-axial fluid collection is seen. Ventricles, sulci, cisterns: Prominent secondary to involutional change. Intracranial vasculature: There is atherosclerotic calcification of the cave rnous carotid arteries. Calvarium: Unremarkable. Sinuses and mastoids: The visualized paranasal sinuses are clear. The mastoid air cells are well pneumatized. Orbits: The bony orbits are grossly intact. There are bilateral ocular lens implants. IMPRESSION: There is no hemorrhage, mass effect, or evidence of acute territorial ischemia by CT criteria. ACT 112: Negative or not required by law. Electronically signed by: Diego Houston M.D. 04/02/2025 3:23 PM Code Status & VTE Plan Code Status DNR/DNI VTE Prophylaxis Plan VTE Prophylaxis will be ordered: Yes PG Care Time/CCT Total # of Minutes Spent Total Time Spent with Patient: Total time spent is greater than 50% in coordination of care (as documented) at patient's floor/unit and/or counseling patient: Coding Level of Care Code 73526 INT INP/OBS CARE 3/75MIN Diagnoses Dementia with agitation F03.911 Confusion R41.0 Elevated troponin R79.89 Hyperkalemia E87.5
[2025-04-02] MEDS ORDERED: DOCUSATE SODIUM 100 MG CAP PO PRN (18:34)
[2025-04-02] MEDS: LACTATED RINGER'S 1,000 ML IV SCH (19:29)
[2025-04-03 06:47] LABS: Hematocrit (blood only) 36.9 % (37.0-47.0); Hemoglobin 12.3 g/dl (12.0-16.0); Immature Granulocytes # (auto) 0.02 K/uL (0.01-0.20); Immature Granulocytes % (auto) 0.4 %; Mean Corpuscular Hemoglobin 32.5 pg (25.0-34.0); Mean Corpuscular Volume 97.4 fL (80.0-100.0); Platelet Count 184 K/uL (130-400); RDW Standard Deviation 53.7 fL (36.4-46.3); Red Blood Count 3.79 M/uL (4.20-5.40); White Blood Count 5.36 K/ul (4.8-10.8)
[2025-04-03 07:12] LABS: Anion Gap 6.0 (3-11); Blood Urea Nitrogen 18.0 mg/dl (6-23); Calcium 8.9 mg/dl (8.6-10.3); Carbon Dioxide 25.0 mmol/L (21-32); Chloride 111.0 mmol/L (98-107); Creatinine Clr Calc Pharmacy 27.5 ml/min; Glucose 102.0 mg/dl (70-99(Fasting)); Magnesium 2.0 mg/dl (1.7-2.4); Potassium 4.5 mmol/L (3.5-5.1); Sodium 142.0 mmol/L (136-145)
[2025-04-03] MEDS: METOPROLOL TARTRATE 25 MG TAB PO SCH (09:21)
--- NOTE | 2025-04-03 10:10 | Hospitalist Progress Note ---
"Date of Service April 03, 2025 Assessment & Plan (1) Dementia with agitation: (2) Confusion: (3) Elevated troponin: (4) Hyperkalemia: Plan The patient is an 85-year-old female with a past medical history including dementia, polycythemia, atrial arrhythmia, urinary tract infection, memory loss. She was brought to the emergency department after staff noted her having multiple syncopal episodes and passing out at [facility] earlier in the day today. Workup in the emergency department included normal CT scan of head, and a normal CT scan of cervical spine. Troponin is mildly elevated 25.7, and patient was referred for evaluation for admission for [facility] service Dementia with agitation/confusion- Son reports that she is at her cognitive baseline. Main concern is where she is going to get discharge to as she cannot return to SNF CT scan head was negative, CT scan cervical spine was negative. Chest x-ray is negative No urine specimen is obtained yet. If infection is present we will treat Continue Seroquel 25 mg p.o. at bedtime PT/OT CM following Palliaitve consult #Afib | syncope | elevated troponin - family reports being told about this and nothing to be done. Discussed likely contributing to her syncope and willing to see how she tolerates metoprolol for rate control. Tele with rates as high as 170s, 120-140s with activity. Troponin peaked at 46, likely demand ischemia from Afib RVR. Metoprolol tartrate 25mg BID Anticoagulation deferred - discussed with family, high fall/bleed risk, and trying to minimize pill burden. Echo deferred as will not change over at this time Attempt orthostatic vital signs will remain on tele while the goal is still rate control - if decide that no longer persusing active treatment will downgrade dany, to minimize wires Hyperkalemia/mild dehydration- K 5.3 on admission, recieved IVF and now 4.5 Asymptomatic dispo: continued inpatient stay, trending HR, PT/OT and palliaitve evals VT proh: encourage ambulaton, SCDs son updated at beside 04/03 Admission and Anticipated Discharge Date Admission Date: April 02, 2025 Subjective Patient sitting up in bed, son present at bedside. Son provides all of the history recurrent falls at her [facility], not safe for her to return does state they new about the afib but have never wanted to do anything about it. Discussed that is high culprit of why she is falling. Son is hesistant to start any new medications, but also hesistant to pursue pallaitve/hospice pathways. is agreeeable to palliative consult his main concern is where she is going to go after here since she cant go back to her H tele afib 80-170 Review of Systems Review of Systems: Unobtainable due to cognitive status Physical Exam Physical Exam: pt did not allow for me to touch her, attempted to punch me when i tried sitting up in bed, no distress breathing is unlabored well perfused alert to self only moves all extremities Results & Data Results & Data Vital Signs (Past 12 Hours) Vital Signs Temp Pulse Pulse Resp BP BP Pulse Ox 04/03/25 08:09 117 H 16 123/84 95 04/03/25 07:15 99 H 04/03/25 02:54 97.9 F 97 H 17 119/89 92 04/03/25 02:28 98 H 04/02/25 23:11 90 17 124/86 94 O2 Del Method 04/03/25 08:09 Room Air 04/03/25 07:15 04/03/25 02:54 Room Air 04/03/25 02:28 04/02/25 23:11 Room Air Laboratory Results cbc and chemistry reviewed PG Care Time/CCT Total # of Minutes Spent Total Time Spent with Patient: Total time spent is greater than 50% in coordination of care (as documented) at patient's floor/unit and/or counseling patient: Coding Level of Care Code 60136 SUB INP/OBS CARE 3/50MIN Diagnoses Dementia with agitation F03.911 Confusion R41.0 Elevated troponin R79.89 Hyperkalemia E87.5"
--- NOTE | 2025-04-03 18:11 | Palliative Care Consultation ---
Date of Consultation April 03, 2025 Assessment & Plan (1) Palliative care by specialist: met with pt and her son at bedside to discuss GOC for 30 minutes Introduced Palliative Medicine and explained our role in advanced care planning, symptom management and navigation through the progression of life limiting disease. Patient and/or family were receptive to palliative services for goals of care discussions. Reviewed we are different from hospice, a home health nurse visiting service. (2) Counseling regarding goals of care: Pt's son shared that he is aware that the patient has advanced dementia and there is no way to delay progression or help her cognition at this point. He requests transition to comfort directed care and would like to focus on getting her discharged to a SNF with hospice care as soon as possible. He shared that [facility] had told him that she requires a higher level of care than they can provide and he expressed [facility] [place], but he is willing to accept any SNF that she will get appropriate care managed by hospice. 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 Discussed hospice benefit: an interdisciplinary program offered by nurses, nurses aides, social workers, chaplains and a medical screener for patients with a terminal condition and a life expectancy of less than 6 months. This is covered by Medicare at 100%/no out of pocket expense to patient and all meds/supplies needed by patient for the reason they are on hospice are paid for/covered by hospice. The goal is assure quality of life of the patient in their home setting (home, snf, inpatient hospice setting) by providing symptoms management, psychosocial and spiritual support. However, they cannot offer 24 hours care and if the family is unable to provide that care, they will have to consider personal care with out of pocket cost vs. snf placement. We discussed the goals of hospice as a patient service and the goals of care; we discussed EOL trajectories and transitions lisandro the emotional impact of realizing mortality as a concrete reality from prior abstract considerations. Pt was reassured that no matter where they are along this trajectory, they are not alone - their medical team will remain by their side through their journey. Discussed the pros/cons of accepting help when especially weakened and distressed by pain-which would also help provide relief/decrease caregiver burden/strain. Anticipatory guidance offered. Discussed changes pt may move through in the dying process including but not limited to sleeping more, disorientation when awake, restlessness, diminished senses/inability to respond to stimulus although ability to be aware of them remains intact longer, and changes in body temperatures, skin changes/mottling/cyanosis, respiratory pattern changes, and oral secretions. Family verbalized understanding. The goal is to assure a peaceful . attending team and CM made aware of son's requests. (3) Comfort measures only status: Comfort plan of care parameters: 1. Patient/Family want hospice added to their care. 2. NO rehab/PT/OT 3. Strictly End of Life care only 4. NO escalation of care: do not increase oxygen, escalate therapies, etc. The focus is on comfort through end of life, assure this is accomplished with aggressive symptom management (i.e. relief of dyspnea, pain, etc.) 5. NO return to hospital 6. NO labs, imaging, surgery 7. Oral intake as desired for comfort and pleasure: NO dietary restriction, Allow permissive aspiration, do not withhold food or drink for concern of aspiration and allow PO for pleasure and comfort. 8. If difficulty urinating/commode/bedpan, ok to place Luz catheter for comfort/hygiene/skin protection AND/OR Continue Luz catheter for comfort/hygiene/skin protection 9. NO: calorie counts, artificial nutrition, feeding tubes or IV fluids Medications to continue are noted on discharge summary. Provider to contact if any questions about comfort plan of care: Hospice Spinner Concrete Pipe or designee EOL Symptom manamgement recs: Continue metoprolol/seroquel per primary Pain/dyspnea/tachypnea morphine 2mg IVP PRN [id number] Consider titratable morphine drip if pt requires >3 PRN doses in under two consecutive hours. Nausea/vomitting zofran 4mg IVP q4h PRN Agitation ativan 0.5mg IVP q4h PRN Hyperactive delirium haldol 5mg IVP q6h PRN Secretions - if repositioning not effective robinul 0.4mg IV q4h PRN atropine SL 3 drops Q1h PRN Nursing care: Discontinue all medications not directed towards comfort. Detether pt from IV tubing, monitor cables, and check vitals once per shift. Please continue HFNC and titrate down as able for patient comfort. Use medications above PRN for dyspnea/tachypnea and do not increase oxygen once titrated down. Assess q1h for pain/dyspnea and treat accordingly. Plan as above History of Present Illness Reason for Consultation: goals of care Requesting Physician: Krys Catherine MD Attending Physician: Krys Catherine MD History of Present Illness 85-year-old female with a past medical history including dementia, polycythemia, atrial arrhythmia, urinary tract infection, memory loss. She was brought to the emergency department after staff noted her having multiple syncopal episodes at [facility]. Workup in the emergency department included normal CT scan of head, and a normal CT scan of cervical spine. Allergies Allergy/AdvReac Type Severity Reaction Status Date / Time No Known Allergies Allergy Verified 04/02/25 16:05 Home Medications Medication Instructions Recorded Confirmed Type acetaminophen 325 mg tablet 650 mg PO Q6H PRN PAIN/FEVER 03/15/25 04/02/25 History (Tylenol) docusate sodium 100 mg capsule 100 mg PO DAILY PRN Constipation 03/15/25 04/02/25 History loperamide 2 mg tablet 2 mg PO Q8 PRN Diarrhea 03/15/25 04/02/25 History quetiapine 25 mg tablet (Seroquel) 25 mg PO HS 03/15/25 04/02/25 History Patient History Medical History (Updated 04/03/25 @ 18:02 by EVE Das) PVCs (premature ventricular contractions) Dyslipidemia Osteoarthritis GERD without esophagitis Dementia Basal cell carcinoma Family History (Updated 03/15/25 @ 20:22 by Armando Santiago MD) Mother Breast cancer Social History (Updated 03/15/25 @ 20:25 by Armando Santiago MD) Smoking Status: Never smoker Second Hand Exposure: No; Do You Dip or Chew Tobacco: No; Hx Alcohol Use: No Hx Substance Use: No Preferred Language: [place] Islander Communication Ability: Effective Tax Assessor Required: No Beliefs That Will Affect Care: None marital status: / 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 How many Children do You have: 1 How many Children do You have Comment: son other: served 4 years in the in the 1960s Feels Safe at Home: Yes Assistive Devices: None Review of Systems Review of Systems: Unobtainable due to cognitive status Physical Exam Constitutional: + ill appearing, + thin and comfortable; + uncooperative Eyes: PERRL, conjunctivae normal, anicteric sclerae Neck: trachea midline, no thyromegaly Respiratory: normal respiratory effort, lungs clear to auscultation Cardiovascular: RRR, no murmur, no edema Gastrointestinal (Abdomen): normal bowel sounds, soft, nontender, no hepatosplenomegaly Musculoskeletal: no cyanosis or clubbing, extremities motor strength 5/5 Skin: no rashes, warm and dry Neurologic: Speech / Cognition: + abnormal cognition pt confused per baseline, speech at times garbled/word salad Results & Data Vital Signs (Past 12 Hours) Vital Signs Pulse Pulse Resp BP Pulse Ox O2 Del Method 04/03/25 16:10 101 H 04/03/25 11:06 100 H 14 116/78 91 Room Air 04/03/25 08:09 117 H 16 123/84 95 Room Air 04/03/25 07:15 99 H Laboratory Results Abnormal lab results 04/03/25 Range/Units 06:24 RBC 3.79 L (4.20-5.40) M/uL Hct 36.9 L (37.0-47.0) % RDW Std Deviation 53.7 H (36.4-46.3) fL RDW Coeff of Iram 15.5 H (11.5-14.5) % Chloride 111 H (98-107) mmol/L Creatinine 1.34 H (0.6-1.2) mg/dl Glucose 102 H (70-99(Fasting)) mg/dl Troponin I High Sens 30.5 H (0-14) pg/ml Albumin 3.2 L (3.4-5.0) gm/dl Diagnostic Findings Cervical Spine CT 04/02/25 14:52 CT cervical spine wo con CT DOSE: 1074.9 mGy.cm CLINICAL HISTORY: syncope. COMPARISON: None TECHNIQUE: Multiple axial CT images of the cervical spine were obtained without contrast. A dose lowering technique was utilized adhering to the principles of ALARA. FINDINGS: There are mild degenerative changes at the lower cervical spine. No fracture or subluxation seen. Multinodular thyroid goiter is partially visualized. IMPRESSION: 1. No cervical spinal fractures seen. 2. Suggest follow-up thyroid ultrasound for the multinodular goiter if not previously obtained. ACT 112: Negative or not required by law. The above report was generated using voice recognition software. It may contain grammatical, syntax or spelling errors. Electronically signed by: Manish Peralta M.D. 04/02/2025 3:18 PM Chest X-Ray 04/02/25 14:52 XR chest 1V portable CLINICAL HISTORY: Chest pain, nonspecific COMPARISON STUDY: 03/15/2025 FINDINGS: Stable prominent cardiomegaly without pulmonary vascular congestion. No consolidation or pleural effusion seen. No pneumothorax. IMPRESSION: No acute findings. ACT 112: Negative or not required by law. Electronically signed by: Manish Peralta M.D. 04/02/2025 3:[address] 04/02/25 14:52 CT SCAN OF THE BRAIN WITHOUT IV CONTRAST CLINICAL HISTORY: Syncope COMPARISON STUDY: CT of the brain dated 03/15/2025 TECHNIQUE: Unenhanced axial CT scan of the brain is performed from the vertex to the skull base. Images are reviewed in the axial, sagittal, coronal planes. A dose lowering technique was utilized adhering to the principles of ALARA. FINDINGS: Brain parenchyma: There is age-related involutional change noting moderate subcortical and periventricular microangiopathic disease. There is no hemorrhage, mass effect, or evidence of acute territorial ischemia by CT criteria. Moreno-white matter differentiation is preserved. No extra-axial fluid collection is seen. Ventricles, sulci, cisterns: Prominent secondary to involutional change. Intracranial vasculature: There is atherosclerotic calcification of the cavernous carotid arteries. Calvarium: Unremarkable. Sinuses and mastoids: The visualized paranasal sinuses are clear. The mastoid air cells are well pneumatized. Orbits: The bony orbits are grossly intact. There are bilateral ocular lens implants. IMPRESSION: There is no hemorrhage, mass effect, or evidence of acute territorial ischemia by CT criteria. ACT 112: Negative or not required by law. Electronically signed by: Diego Houston M.D. 04/02/2025 3:23 PM Medications Administered Current Inpatient Medications Acetaminophen (Acetaminophen 325 Mg Tab) 650 mg PO Q6H PRN PRN Reason: Pain or Fever Stop: 05/02/25 18:33 Docusate Sodium (Docusate Sodium 100 Mg Cap) 100 mg PO DAILY PRN PRN Reason: Constipation Stop: 05/02/25 18:33 Metoprolol Tartrate (Metoprolol Tartrate 25 Mg Tab) 25 mg PO BID MAXIM Stop: 05/03/25 08:59 Last Admin: 04/03/25 09:21 Dose: 25 mg Quetiapine Fumarate (Quetiapine Fumarate 25 Mg Tablet) 25 mg PO HS MAXIM Stop: 05/02/25 20:59 Last Admin: 04/02/25 20:13 Dose: 25 mg PG Care Time/CCT Total # of Minutes Spent Total Time Spent with Patient: Total time spent is greater than 50% in coordination of care (as documented) at patient's floor/unit and/or counseling patient: Advanced Care Planning 33779 Advanced Care Planning 30 [place] [address] IN/OBS CONSULT LVL 4,60M Patient Type New History Expanded Problem Focused Exam Expanded Problem Focused Medical Decision Making Moderate Complexity Diagnoses Palliative care by specialist Z51.5 Counseling regarding goals of care Z71.89 Comfort measures only status Z51.5 Additional Codes Advanced Care Planning - 62989 Advanced Care Planning 30 Min: 59548 Advanced Care Planning 30 Min ([id number])
[2025-04-04] MEDS: METOPROLOL SUCC 25MG EXT REL TAB PO SCH (09:20)
--- NOTE | 2025-04-04 09:26 | Hospitalist Progress Note ---
"Date of Service April 04, 2025 Assessment & Plan (1) Dementia with agitation: (2) Confusion: (3) Elevated troponin: (4) Hyperkalemia: Plan The patient is an 85-year-old female with a past medical history including dementia, polycythemia, atrial arrhythmia, urinary tract infection, memory loss. She was brought to the emergency department after staff noted her having multiple syncopal episodes and passing out at [facility] earlier in the day today. Workup in the emergency department included normal CT scan of head, and a normal CT scan of cervical spine. Troponin is mildly elevated 25.7, and patient was referred for evaluation for admission for [facility] service Comfort measures only | Dementia with agitation/confusion- Son reports that she is at her cognitive baseline. Main concern is where she is going to get discharge to as she cannot return to SNF. CT scan head was negative, CT scan cervical spine was negative. Chest x-ray is negative. 04/04 transition to comfort measures only - plan to d/c to SNF with hospice when arranged. Continue Seroquel 25 mg p.o. at bedtime PRN PO zyprexa BID PRN IM zyprexa for behavioral emergencies CM following #Afib | syncope | elevated troponin - family reports being told about this and nothing to be done. Discussed likely contributing to her syncope and willing to see how she tolerates metoprolol for rate control. Tele with rates as high as 170s, 120-140s with activity. Troponin peaked at 46, likely demand ischemia from Afib RVR. Anticoagulation deferred - discussed with family, high fall/bleed risk, and trying to minimize pill burden. Echo deferred as will not change person Continue metoprolol as son think this is helping as thinks palpitations increase Ana's anxiety- converted to succinate to reduce pill burden, remove hold para meters to reduce vital sign assements Hyperkalemia/mild dehydration-K 5.3 on admission, recieved IVF and now 4.5 dispo: continued inpatient stay arranging outpatient hospice, downgrade to medical [place] proh: none, SCALE AND SKIP CAR OPERATOR son updated at beside 04/03 and by phone 04/04 Admission and Anticipated Discharge Date Admission Date: April 02, 2025 Subjective Patient resting in bed - did not awaken. Per nursing staff has been more combative and irritable. Afib 90-120s Review of Systems Review of Systems: Unobtainable due to cognitive status Physical Exam Physical Exam: resting comfortably in bed breathing un labored Results & Data Results & Data Vital Signs (Past 12 Hours) Vital Signs Pulse O2 Del Method 04/04/25 07:26 Room Air 04/03/25 23:00 105 H PG Care Time/CCT Total # of Minutes Spent Total Time Spent with Patient: Total time spent is greater than 50% in coordination of care (as documented) at patient's floor/unit and/or counseling patient: Coding Level of Care Code 23783 SUB INP/OBS CARE 2/35MIN Diagnoses Dementia with agitation F03.911 Confusion R41.0 Elevated troponin R79.89 Hyperkalemia E87.5"
--- NOTE | 2025-04-04 15:17 | Electrocardiogram Report ---
Test Reason : Blood Pressure : */* mmHG Vent. Rate : 89 BPM Atrial Rate : * BPM P-R Int : * ms QRS Dur : 146 ms QT Int : 408 ms P-R-T Axes : * 34 -13 degrees QTcB Int : 496 ms Atrial fibrillation with premature ventricular or aberrantly conducted complexes Right bundle branch block Septal infarct (cited on or before 02-Apr-2025) Abnormal ECG When compared with ECG of 02-Apr-2025 15:46, (unconfirmed) No significant change was found Confirmed by Damian Greer ([id number]) on 04/04/2025 3:17:30 PM Referred By: REFERRED SELF Confirmed By: Damian Greer
--- NOTE | 2025-04-05 07:30 | Electrocardiogram Report ---
Test Reason : Blood Pressure : */* mmHG Vent. Rate : 109 BPM Atrial Rate : * BPM P-R Int : * ms QRS Dur : 140 ms QT Int : 344 ms P-R-T Axes : * 73 -29 degrees QTcB Int : 463 ms Atrial fibrillation with rapid ventricular response with premature ventricular or aberrantly conducte d complexes Right bundle branch block Septal infarct , age undetermined Abnormal ECG When compared with ECG of 15-Mar-2025 15:55, No significant change Confirmed by Damian Greer ([id number]) on 04/05/2025 7:30:00 AM Referred By: REFERRED SELF Confirmed By: Damian Greer
[2025-04-05 08:26] VITALS: TEMP 97.5
--- NOTE | 2025-04-05 13:12 | Hospitalist Progress Note ---
Date of Service April 05, 2025 Assessment & Plan (1) Dementia with agitation: Plan: Comfort measures only. Seroquel at bedtime. Zyprexa as needed (2) Confusion: Plan: Due to underlying dementia. Supportive care (3) Elevated troponin: Plan: Present on admission. No evidence of acute coronary syndrome (4) Hyperkalemia: Plan: Elevated on admission. Most recent potassium level 4.5. Plan Anticipate eventual discharge to SNF facility with hospice care Admission and Anticipated Discharge Date Admission Date: April 02, 2025 Subjective Awake. Stable. She remains disoriented due to underlying severe dementia. She continues to state "I want to go home with my mother". Review of Systems 2 Review of Systems: The patient is severely demented and cannot accurately respond to any questions regarding review of systems Physical Exam 2 Physical Exam: General-alert but totally disoriented. No distress. No fever. HEENT-head atraumatic and normocephalic, pupils equal and reactive to light, extraocular muscles intact Neck-no lymphadenopathy or thyromegaly, trachea midline Chest-clear to auscultation. No rales, wheezing or rhonchi Cardiac-regular rate and rhythm, normal S1 and S2 Abdomen-normal bowel sounds, no hepatosplenomegaly Extremities-no cyanosis, clubbing, or edema Neuro-the patient is able to move all extremities randomly. No apparent focal motor deficits. Psych-advanced baseline dementia. Cannot assess Results & Data Results & Data Vital Signs (Past 12 Hours) Vital Signs Temp Pulse Resp BP Pulse Ox O2 Del Method 04/05/25 08:25 36.4 C L 77 18 111/70 94 Room Air Laboratory Results 04/03/25 06:24 04/03/25 06:24 PG Care Time/CCT Total # of Minutes Spent Total Time Spent with Patient: Total time spent is greater than 50% in coordination of care (as documented) at patient's floor/unit and/or counseling patient: Coding Level of Care Code 81869 SUB INP/OBS CARE 2/35MIN Diagnoses Dementia with agitation F03.911 Confusion R41.0 Elevated troponin R79.89 Hyperkalemia E87.5
--- NOTE | 2025-04-06 11:00 | Hospitalist Progress Note ---
Date of Service April 06, 2025 Assessment & Plan (1) Dementia with agitation: Plan: Comfort measures only. Seroquel at bedtime. Zyprexa as needed (2) Confusion: Plan: Due to underlying dementia. Supportive care (3) Elevated troponin: Plan: Present on admission. No evidence of acute coronary syndrome (4) Hyperkalemia: Plan: Elevated on admission. Most recent potassium level 4.5. Plan Anticipate eventual discharge to SNF facility with hospice care when arrangements are finalized Admission and Anticipated Discharge Date Admission Date: April 02, 2025 Subjective Awake but chronically disoriented due to underlying severe dementia. No new problems. Review of Systems 2 Review of Systems: The patient is severely demented and cannot accurately respond to any questions regarding review of systems Physical Exam 2 Physical Exam: General-alert but totally disoriented. No distress. No fever. HEENT-head atraumatic and normocephalic, pupils equal and reactive to light, extraocular muscles intact Neck-no lymphadenopathy or thyromegaly, trachea midline Chest-clear to auscultation. No rales, wheezing or rhonchi Cardiac-regular rate and rhythm, normal S1 and S2 Abdomen-normal bowel sounds, no hepatosplenomegaly Extremities-no cyanosis, clubbing, or edema Neuro-the patient is able to move all extremities randomly. No apparent focal motor deficits. Psych-advanced baseline dementia. Cannot assess Results & Data Results & Data Vital Signs (Past 12 Hours) Vital Signs O2 Del Method 04/06/25 07:38 Room Air Laboratory Results 04/03/25 06:24 04/03/25 06:24 PG Care Time/CCT Total # of Minutes Spent Total Time Spent with Patient: Total time spent is greater than 50% in coordination of care (as documented) at patient's floor/unit and/or counseling patient: Coding Level of Care Code 81049 SUB INP/OBS CARE 2/35MIN Diagnoses Dementia with agitation F03.911 Confusion R41.0 Elevated troponin R79.89 Hyperkalemia E87.5
--- NOTE | 2025-04-07 08:45 | Hospitalist Progress Note ---
"Date of Service April 07, 2025 Assessment & Plan (1) Dementia with agitation: (2) Confusion: (3) Elevated troponin: (4) Hyperkalemia: (5) Comfort measures only status: Plan This patient is an 85-year-old female who presented on 04/02 for a ground-level fall. She is a poor historian due to history of underlying dementia. Currently awaiting SNF placement w/ hospice. 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 Supportive care #Elevated troponin Present on admission. No evidence of acute coronary syndrome #Hyperkalemia (resolved) Elevated on admission. Most recent potassium level 4.5. Disposition: Anticipate eventual discharge to SNF facility with hospice care when arrangements are finalized CM following; referrals made to [place], [place], and [facility] Son (Diego) updated at beside 04/03 and by phone 04/04 Admission and Anticipated Discharge Date Admission Date: April 02, 2025 Subjective Mrs. English is feeling anxious this morning. She denies any symptoms at this time (no chest pain, shortness of breath, or abdominal pain), but is tearful in the room and reports that she feels like she wants to go home. She is not alert or oriented to , location, or purpose in the hospital. Difficult to obtain ROS given patient's underlying dementia, however patient reports no acute pain at this time. Review of Systems Review of Systems: See HPI above Physical Exam Physical Exam: General gestalt: Patient is tearful in the room; appears anxious; disoriented; non-toxic appearing; frail appearing; SpO2 94% on RA Neuro: Alert and oriented to name, not oriented to , location, or person hospital; responds to some questioning Patient declines physical exam on 04/07 PG Care Time/CCT Total # of Minutes Spent Total Time Spent with Patient: Total time spent is greater than 50% in coordination of care (as documented) at patient's floor/unit and/or counseling patient: Coding [place] [address] SUB INP/OBS CARE 09/07MIN Patient Type Established History Detailed Exam Detailed Medical Decision Making Low Complexity Diagnoses Dementia with agitation F03.911 Confusion R41.0 Elevated troponin R79.89 Hyperkalemia E87.5 Comfort measures only status Z51.5"
--- NOTE | 2025-04-07 15:40 | Palliative Care Progress Note ---
Date of Service April 07, 2025 Assessment & Plan (1) Palliative care by specialist: Plan: Palliative care will continue to follow for ongoing EOL pt care and family support. (2) Comfort measures only status: Plan: On family request, transitioned to PIPE THREADER on 04/03/25. Plan to continue current level of care, pending SNF placement for ongoing hospice care. (3) Dementia with agitation: Plan: continue seroquel and olanzapine per attending team. Plan as above Admission and Anticipated Discharge Date Admission Date: April 02, 2025 Subjective Assessed pt at bedside, she was transitioned to PIPE THREADER on 04/03/25. Pt is sleeping soundly, did not attempt to awaken in concert with comfort directed care. She appears comfortable, pale skin, extremities warm, well perfused. Respiratory effort normal, rate 18/min. NAD on RA. No visitors at bedside. Review of Systems Review of Systems: Unobtainable due to cognitive status Physical Exam Physical Exam: Pt is sleeping soundly, did not attempt to awaken in concert with comfort directed care. Constitutional: + ill appearing, + thin, + cachectic and comfortable Neck: trachea midline, no thyromegaly Respiratory: normal respiratory effort, lungs clear to auscultation Cardiovascular: RRR, no murmur, no edema Gastrointestinal (Abdomen): normal bowel sounds, soft, nontender, no hepatosplenomegaly Musculoskeletal: no cyanosis or clubbing, extremities motor strength 5/5 Skin: no rashes, warm and dry Results & Data Vital Signs (Past 12 Hours) Vital Signs Temp 36.4 C L 04/05/25 08:25 Pulse 77 04/05/25 08:25 Resp 14 04/06/25 12:30 BP 103/73 04/06/25 12:30 Pulse Ox 94 04/05/25 08:25 O2 Del Method Room Air 04/06/25 07:38 Intake & Output 04/06/25 04/07/25 04/07/25 18:59 06:59 18:59 Other: # Unmeasured Voids 1 Laboratory Results No further labs or diagnostics in concert with comfort directed care. Diagnostic Findings No further labs or diagnostics in concert with comfort directed care. Medications Administered Current Inpatient Medications Acetaminophen (Acetaminophen 325 Mg Tab) 650 mg PO Q6H PRN PRN Reason: Pain or Fever Stop: 05/02/25 18:33 Docusate Sodium (Docusate Sodium 100 Mg Cap) 100 mg PO DAILY PRN PRN Reason: Constipation Stop: 05/02/25 18:33 Metoprolol Succinate (Metoprolol Succ 25mg Ext Rel Tab) 25 mg PO QAM MAXIM Stop: 05/04/25 08:59 Last Admin: 04/07/25 08:11 Dose: Not Given Olanzapine (Olanzapine 10 Mg/2.1 Ml Sdv) 5 mg IM DAILY PRN PRN Reason: severe agitation Stop: 05/04/25 08:59 Last Admin: 04/04/25 21:58 Dose: 5 mg Olanzapine (Olanzapine Zydis 5 Mg Orally Dis. Tab) 2.5 mg PO BID PRN PRN Reason: Agitation Stop: 05/04/25 08:59 Last Admin: 04/06/25 00:24 Dose: 2.5 mg Quetiapine Fumarate (Quetiapine Fumarate 25 Mg Tablet) 25 mg PO HS MAXIM Stop: 05/02/25 20:59 Last Admin: 04/06/25 20:16 Dose: Not Given PG Care Time/CCT Total # of Minutes Spent Total Time Spent with Patient: Total time spent is greater than 50% in coordination of care (as documented) at patient's floor/unit and/or counseling patient: Coding [place] [address] SUB INP/OBS CARE 09/07MIN Patient Type Established History Problem Focused Medical Decision Making Low Complexity Diagnoses Palliative care by specialist Z51.5 Comfort measures only status Z51.5 Dementia with agitation F03.911
[2025-04-08] MEDS: ACETAMINOPHEN 325 MG TAB PO PRN (09:48)
--- NOTE | 2025-04-08 12:48 | Hospitalist Progress Note ---
Date of Service April 08, 2025 Assessment & Plan (1) Dementia with agitation: (2) Confusion: (3) Elevated troponin: (4) Hyperkalemia: (5) Comfort measures only status: Plan This patient is an 85-year-old female who presented on 04/02 for a ground-level fall. She is a poor historian due to history of underlying dementia. Currently awaiting SNF placement w/ hospice. #Dementia with agitation | SPECIFICATION WRITER Comfort measures only Patient reportedly removed her IV on evening of 04/07 - will defer placing additional IV at this time Seroquel HS Zyprexa PRN (although patient has not require dose of Zyprexa since 04/05 (~72h) CM following Hospice + SNF on discharge Automatic Embroidery Machine Tender from [place] [facility] on 04/07 to evaluate patient for placement, however did not follow up with CM afterwards Messages out to [facility] and [facility] on 04/08 Awaiting further updates #Confusion Due to underlying dementia. Supportive care #Elevated troponin Present on admission. No evidence of acute coronary syndrome #Hyperkalemia (resolved) Elevated on admission. Most recent potassium level 4.5. Disposition: Anticipate eventual discharge to SNF facility with hospice care when arrangements are finalized CM following; referrals made to [facility] Son (Diego) updated by CM on 04/08. Son reportedly lives in [place]. He is requesting that - given patient has not required IV Olanzapine for ~72h - we reach out to [facility] home again to reassess eligibility. He is also amenable to [facility] and [facility]. Admission and Anticipated Discharge Date Admission Date: April 02, 2025 Subjective Patient remains confused this morning. She is a poor historian, but does appear anxious and tearful in bed. She reports that she wants to "get out of here", and reports that she is sad about her mom and dad passing. While difficult to obtain ROS, she denies any pain at this time, and does report she slept well last night. Unable to obtain ROS due to patient's underlying dementia. Spoke with nursing staff at bedside. While she had no overnight events, she did pull out her IV yesterday evening. She has also been refusing pain medicine such as Tylenol for her reported headache and belly pain. She has not been eating much this morning, but did have a banana and a hamburger yesterday. Patient has not required Zyprexa over the past 2 days. Nursing staff reports that she is fairly independent as she is able to get out of bed and urinate using the toilet. Additionally, they report she has been refusing her Seroquel. Review of Systems Review of Systems: See HPI above Physical Exam Physical Exam: General gestalt: Patient is tearful in the room; appears anxious; disoriented; non-toxic appearing; frail appearing; SpO2 94% on RA Neuro: Alert and oriented to name, not oriented to , location, or person hospital; responds to some questioning Patient declines physical exam on 04/07 Results & Data Results & Data Vital Signs (Past 12 Hours) Vital Signs O2 Del Method 04/08/25 08:10 Room Air PG Care Time/CCT Total # of Minutes Spent Total Time Spent with Patient: Total time spent is greater than 50% in coordination of care (as documented) at patient's floor/unit and/or counseling patient: [place] [address] SUB INP/OBS CARE 09/07MIN Patient Type Established History Detailed Exam Detailed Medical Decision Making Low Complexity Diagnoses Dementia with agitation F03.911 Confusion R41.0 Elevated troponin R79.89 Hyperkalemia E87.5 Comfort measures only status Z51.5
--- NOTE | 2025-04-09 10:10 | Hospitalist Progress Note ---
Date of Service April 09, 2025 Assessment & Plan (1) Dementia with agitation: (2) Confusion: (3) Elevated troponin: (4) Hyperkalemia: (5) Comfort measures only status: Plan This patient is an 85-year-old female who presented on 04/02 for a ground-level fall. She is a poor historian due to history of underlying dementia. Currently awaiting SNF placement w/ hospice. 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 Supportive care #Elevated troponin Present on admission. No evidence of acute coronary syndrome #Hyperkalemia (resolved) Elevated on admission. Most recent potassium level 4.5. Disposition: Medically stable for discharge at this time; will require discharge to SNF facility with hospice care when arrangements are finalized Son (Diego) updated by CM on 04/08. Son reportedly lives in [place]. He is requesting that - given patient has not required IV Olanzapine for ~72h - we reach out to [facility] home again to reassess eligibility. He is also amenable to [facility] and [place]. Update on 04/09 -dementia bed available at [place]; referral faxed Admission and Anticipated Discharge Date Admission Date: April 02, 2025 Subjective Mrs. English is doing well this morning. She is sitting upright in her bed in no acute distress watching TV, with breakfast tray in front of her. When asked how she slept last night, she reports "not bad". She is able to report that her birthday is [birth year], but does not know the month of the year today. She reports she has no pain this morning so far. No chest pain, SOB, or abdominal pain. Difficult to obtain ROS given patient's underlying dementia, however she reports no pain or acute stressors at this time. Review of Systems Review of Systems: See HPI above Physical Exam Physical Exam: General: no acute distress; sitting upright in her bed watching TV; non-toxic appearing; frail appearing; cooperative; SpO2 94% on RA HEENT: normocephalic, atraumatic; PERRLA w/ EOMs intact; vision and hearing appear to be intact Neck: supple; trachea midline Skin: warm, dry without signs of tenting; no cyanosis; no rashes, bruising, lesions, or erythema noted CV: chest wall NTP; RRR; S1/S2 normal; no murmurs/rubs/gallops; pulses intact and symmetric at radial, DP, and PT Lungs: no acute respiratory distress; symmetrical chest wall expansion; clear breath sounds across all lung joyner w/o adventitious sounds; no wheezing ABD: Soft, NTP; BS present MSK: no tics or fasciculations; no edema noted in the LEs b/l, nonerythematous; patient demonstrated ability to lift legs off the bed upon command Neuro: Oriented to date of ; does not respond to all questioning; flat mood and affect; no facial droop or slurred speech appreciated; unable to assess sensation PG Care Time/CCT Total # of Minutes Spent Total Time Spent with Patient: Total time spent is greater than 50% in coordination of care (as documented) at patient's floor/unit and/or counseling patient: [place] [address] SUB INP/OBS CARE 125MIN Patient Type Established History Detailed Exam Detailed Medical Decision Making Low Complexity Diagnoses Dementia with agitation F03.911 Confusion R41.0 Elevated troponin R79.89 Hyperkalemia E87.5 Comfort measures only status Z51.5
--- NOTE | 2025-04-10 08:08 | Hospitalist Progress Note ---
"Date of Service April 10, 2025 Assessment & Plan (1) Dementia with agitation: (2) Confusion: (3) Elevated troponin: (4) Hyperkalemia: (5) Comfort measures only status: Plan This patient is an 85-year-old female who presented on 04/02 for a ground-level fall. She is a poor historian due to history of underlying dementia. Currently awaiting SNF placement w/ hospice. 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 Supportive care #Elevated troponin Present on admission. No evidence of acute coronary syndrome #Hyperkalemia (resolved) Elevated on admission. Most recent potassium level 4.5. Disposition: Medically stable for discharge at this time; will require discharge to SNF facility with hospice care when arrangements are finalized Son (Diego) updated by CM on 04/10. Son reportedly lives in [place]. son came toured and provided financial paperwork he told them would like the weekend to discuss with family Mer is reviewing documents will let me know monday Admission and Anticipated Discharge Date Admission Date: April 02, 2025 Subjective pt has no complaints is confused and appears anxious Physical Exam Physical Exam: cardiac is regular redirected with anxiety' lungs are clear PG Care Time/CCT Total # of Minutes Spent Total Time Spent with Patient: Total time spent is greater than 50% in coordination of care (as documented) at patient's floor/unit and/or counseling patient: Coding Level of Care Code 59485 SUB INP/OBS CARE 2/35MIN Diagnoses Dementia with agitation F03.911 Confusion R41.0 Elevated troponin R79.89 Hyperkalemia E87.5 Comfort measures only status Z51.5"
[2025-04-11 05:08] VITALS: BP 135/85
--- NOTE | 2025-04-11 14:12 | Hospitalist Progress Note ---
"Date of Service April 11, 2025 Assessment & Plan (1) Dementia with agitation: (2) Confusion: (3) Elevated troponin: (4) Hyperkalemia: (5) Comfort measures only status: Plan This patient is an 85-year-old female who presented on 04/02 for a ground-level fall. She is a poor historian due to history of underlying dementia. Currently awaiting SNF placement w/ hospice. #Dementia with agitation | HELICOPTER PILOT - Comfort measures only - Patient reportedly removed her IV on evening of 04/07 - will defer placing additional IV at this time - changed Seroquel HS to Zyprexa HS (pt refusing meds and it's easier to administer Zyprexa) - cont Zyprexa PRN - although patient has not require dose of Zyprexa since 04/05 - CM following Hospice + SNF on discharge Amusement Machine Mechanic from [facility] on 04/07 to evaluate patient for placement, however did not follow up with CM afterwards Messages out to [place] and [facility] family is still undecided #Confusion Due to underlying dementia. Supportive care #Elevated troponin Present on admission. No evidence of acute coronary syndrome #Hyperkalemia (resolved) Elevated on admission. Most recent potassium level 4.5. Disposition: Medically stable for discharge at this time; will require discharge to SNF facility with hospice care when arrangements are finalized Son (Diego) updated by CM on 04/10. Son reportedly lives in [place]. son came toured and provided financial paperwork he told them would like the weekend to discuss with family Mer is reviewing documents will let us know Monday. Admission and Anticipated Discharge Date Admission Date: April 02, 2025 Subjective Pt received Zyprexa this morning due to agitation. She is has been refusing medications and Zyprexa ODT was easier to administer Review of Systems Review of Systems: Not able to obtained detailed ROS due to mental status Physical Exam Physical Exam: Gen: no acute distress, lying in bed comfortable, mumbling HEENT: NC/AT, MMM Lungs: nonlabored breathing, CTAB CVS: s1s2nl, RRR Abd: nl bowel sounds, soft, NT / ND : no allan Ext: no edema Neuro: wakes up to name, but goes back to sleep afterwards Psych: calm Results & Data Results & Data Vital Signs (Past 12 Hours) Vital Signs Pulse Resp BP Pulse Ox O2 Del Method 08/29/25 11:02 Room Air 04/11/25 04:35 89 18 135/85 94 Room Air PG Care Time/CCT Total # of Minutes Spent Total Time Spent with Patient: Total time spent is greater than 50% in coordination of care (as documented) at patient's floor/unit and/or counseling patient: Coding Level of Care Code 41560 SUB INP/OBS CARE 2/35MIN Diagnoses Dementia with agitation F03.911 Confusion R41.0 Elevated troponin R79.89 Hyperkalemia E87.5 Comfort measures only status Z51.5"
--- NOTE | 2025-04-12 19:16 | Hospitalist Progress Note ---
"Date of Service April 12, 2025 Assessment & Plan (1) Dementia with agitation: (2) Confusion: (3) Elevated troponin: (4) Hyperkalemia: (5) Comfort measures only status: Plan This patient is an 85-year-old female who presented on 04/02 for a ground-level fall. She is a poor historian due to history of underlying dementia. Currently awaiting SNF placement w/ hospice. 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 - Comfort measures only - Patient reportedly removed her IV on evening of 04/07 - will defer placing additional IV at this time - changed Seroquel HS to Zyprexa HS (pt refusing meds and it's easier to administer Zyprexa), dose increased from 2.5mg to 5mg - cont Zyprexa PRN - although patient has not require dose of Zyprexa since 04/05 - CM following Hospice + SNF on discharge Purchasing Internship from [facility] on 04/07 to evaluate patient for placement, however did not follow up with CM afterwards Messages out to [place] and [facility] family is still undecided #Confusion Due to underlying dementia. Supportive care #Elevated troponin Present on admission. No evidence of acute coronary syndrome #Hyperkalemia (resolved) Elevated on admission. Most recent potassium level 4.5. Disposition: Medically stable for discharge at this time; will require discharge to SNF facility with hospice care when arrangements are finalized Son Gerard) updated by CM on 04/10. Son reportedly lives in [place]. son came toured and provided financial paperwork he told them would like the weekend to discuss with family Mer is reviewing documents will let us know Monday. Admission and Anticipated Discharge Date Admission Date: April 02, 2025 Subjective It appears that her day / night cycle has flipped She is more agitated at night but sleeping during the day time Review of Systems Review of Systems: Not able to obtained detailed ROS due to mental status Physical Exam Physical Exam: Gen: no acute distress, lying in bed comfortable, mumbling HEENT: NC/AT, MMM Lungs: nonlabored breathing, CTAB CVS: s1s2nl, RRR Abd: nl bowel sounds, soft, NT / ND : no allan Ext: no edema Neuro: wakes up to name, but goes back to sleep afterwards Psych: calm PG Care Time/CCT Total # of Minutes Spent Total Time Spent with Patient: Total time spent is greater than 50% in coordination of care (as documented) at patient's floor/unit and/or counseling patient: Coding Level of Care Code 27309 SUB INP/OBS CARE 235MIN Diagnoses Dementia with agitation F03.911 Confusion R41.0 Elevated troponin R79.89 Hyperkalemia E87.5 Comfort measures only status Z51.5"
[2025-04-13 08:06] VITALS: PULSE 83; RESP 15; O2SAT 95
--- NOTE | 2025-04-13 09:04 | Hospitalist Progress Note ---
"Date of Service April 13, 2025 Assessment & Plan (1) Dementia with agitation: (2) Confusion: (3) Elevated troponin: (4) Hyperkalemia: (5) Comfort measures only status: Plan This patient is an 85-year-old female who presented on 04/02 for a ground-level fall. She is a poor historian due to history of underlying dementia. Currently awaiting SNF placement w/ hospice. 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 - Comfort measures only - Patient reportedly removed her IV on evening of 04/07 - will defer placing additional IV at this time - changed Seroquel HS to Zyprexa HS (pt refusing meds and it's easier to administer Zyprexa), dose increased from 2.5mg to 5mg - cont Zyprexa PRN - although patient has not require dose of Zyprexa since 04/05 - CM following Hospice + SNF on discharge Do All Operator from [facility] on 04/07 to evaluate patient for placement, however did not follow up with CM afterwards Messages out to [place] and [facility] Family is still undecided / taking the weekend to decide #Confusion Due to underlying dementia. Supportive care #Elevated troponin Present on admission. No evidence of acute coronary syndrome #Hyperkalemia (resolved) Elevated on admission. Most recent potassium level 4.5. Disposition: Medically stable for discharge at this time; will require discharge to SNF facility with hospice care when arrangements are finalized Son (Diego) updated by CM on 04/10. Son reportedly lives in [place]. son came toured and provided financial paperwork he told them would like the weekend to discuss with family Mer is reviewing documents will let us know Monday. Admission and Anticipated Discharge Date Admission Date: April 02, 2025 Subjective Patient is not alert or oriented today. She does not respond to questioning. She appears lethargic, occasionally rolling around her bed and moan, as well as pulling at her blankets and gown. Unable to obtain ROS at this time. Touched base with nursing staff, who confirms he has been like this for most of the day. While she has not eaten any food today, she did drink a cup of Powerade independent. She exhibits urinary continence at baseline. No reported episodes of agitation or aggression. While she has declined all p.o. medications, she did except her ODT Zyprexa with water around 1 PM today. Review of Systems Review of Systems: See HPI above Physical Exam Physical Exam: General: Patient appears in mild distress; groaning in bed and rolling over; pulling at her blankets; Non-toxic appearing; frail appearing; SpO2 95% on HEENT: normocephalic, atraumatic; PERRLA; unable to assess vision or hearing Neck: supple; trachea midline Skin: warm, dry without signs of tenting; no cyanosis; no rashes, bruising, lesions, or erythema noted CV: chest wall NTP; RRR Lungs: no acute respiratory distress; symmetrical chest wall expansion; clear breath sounds across all lung joyner w/o adventitious sounds; no wheezing ABD: Soft, NTP; BS present MSK: no tics or fasciculations; no edema noted in the LEs b/l, nonerythematous; patient does not follow commands today when asked to wiggle toes or business system manager fingers Neuro: Does not respond to questioning; not alert or oriented: Cervical flat mood and affect; no facial droop or slurred speech appreciated; unable to assess sensation Results & Data Results & Data Vital Signs (Past 12 Hours) Vital Signs Pulse Resp Pulse Ox O2 Del Method 04/13/25 08:04 83 15 95 Room Air 04/13/25 07:39 Room Air PG Care Time/CCT Total # of Minutes Spent Total Time Spent with Patient: Total time spent is greater than 50% in coordination of care (as documented) at patient's floor/unit and/or counseling patient: Coding [place] [address] SUB INP/OBS CARE 09/07MIN Patient Type Established History Detailed Exam Detailed Medical Decision Making Low Complexity Diagnoses Dementia with agitation F03.911 Confusion R41.0 Elevated troponin R79.89 Hyperkalemia E87.5 Comfort measures only status Z51.5"
[2025-04-14] MEDS: ACETAMINOPHEN SUSP 325 MG/10.15 ML UDC PO PRN (00:17)
--- NOTE | 2025-04-14 12:29 | Hospitalist Progress Note ---
Date of Service April 14, 2025 Assessment & Plan (1) Dementia with agitation: Plan: Supportive care. (2) Elevated troponin: Plan: No acute EKG changes. No complaints of chest pain on admission. No evidence of acute coronary syndrome (3) Hyperkalemia: Plan: Present on admission. Now resolved Plan Discharged to extended-care facility is pending. Admission and Anticipated Discharge Date Admission Date: April 02, 2025 Subjective Severe baseline dementia with episodes of agitation. The patient is currently asleep Review of Systems 2 Review of Systems: The patient is currently asleep but with her baseline dementia is unable to answer reliably any questions regarding review of systems Physical Exam 2 Physical Exam: General-currently asleep. No fever HEENT-head atraumatic and normocephalic Neck-no lymphadenopathy or thyromegaly, trachea midline Chest-clear to auscultation. No rales, wheezing or rhonchi Cardiac-regular rate and rhythm, normal S1 and S2 Abdomen-normal bowel sounds, no hepatosplenomegaly Extremities-both feet appear cyanotic Neuro-cannot assess. Currently asleep Psych-cannot assess. Currently asleep Results & Data Results & Data Vital Signs (Past 12 Hours) Vital Signs O2 Del Method 04/14/25 08:45 Room Air Laboratory Results 04/03/25 06:24 04/03/25 06:24 PG Care Time/CCT Total # of Minutes Spent Total Time Spent with Patient: Total time spent is greater than 50% in coordination of care (as documented) at patient's floor/unit and/or counseling patient: Coding Level of Care Code 51925 SUB INP/OBS CARE 2/35MIN Diagnoses Dementia with agitation F03.911 Elevated troponin R79.89 Hyperkalemia E87.5
[2025-04-15] MEDS ORDERED: MoRPHine SULFATE 2 MG/ML CARP IV PRN (07:34)
[2025-04-15] MEDS: MoRPHine SULFATE 10 MG/0.5 ML UDP PO PRN ×2 (09:10→14:01)
[2025-04-15] MEDS ORDERED: LORazepam 0.5 MG TAB PO PRN (11:10)
[2025-04-15] MEDS ORDERED: HALOPERIDOL ORAL SOLN 2 MG/ML PO PRN (11:33)
[2025-04-15] MEDS ORDERED: LORazepam 1 MG TAB SL PRN (11:33)
--- NOTE | 2025-04-15 13:03 | Hospitalist Progress Note ---
"Date of Service April 15, 2025 Assessment & Plan (1) Dementia with agitation: (2) Elevated troponin: (3) Hyperkalemia: Plan This patient is an 85-year-old female who presented on 04/02 for a ground-level fall. She is a poor historian due to history of underlying dementia. Currently awaiting SNF placement w/ hospice. #Dementia with agitation | CH[employer]IP WETTER Comfort measures only. Roxanol 10mg PO q3h prn for SOB/pain Ativan 1mg SL q6h prn for anxiety/agitation Haldol 0.5mg PO q4h prn for anxiety/agitation Placement pending - discussed w/ CM. Disposition: Medically stable for discharge at this time; will require discharge to SNF facility with hospice care when arrangements are finalized Admission and Anticipated Discharge Date Admission Date: April 02, 2025 Supervising Physician Co-Signing Physician Notes The patient was not seen by me. The chart was reviewed. Case discussed with CECILIO Stern. Agree with assessment and plan Subjective Ana seen and examined this morning. She was resting in bed sleeping at time of encounter. No history able to be obtained Physical Exam Constitutional: sleeping, unarousable. Respiratory: normal respiratory effort Skin: no rashes, warm and dry Psychiatric: sleeping, unarousable Results & Data Results & Data Vital Signs (Past 12 Hours) Vital Signs O2 Del Method 04/15/25 07:49 Room Air PG Care Time/CCT Total # of Minutes Spent Total Time Spent with Patient: Total time spent is greater than 50% in coordination of care (as documented) at patient's floor/unit and/or counseling patient: Coding Level of Care Code 67774 SUB INP/OBS CARE 2/35MIN Diagnoses Dementia with agitation F03.911 Elevated troponin R79.89 Hyperkalemia E87.5"
--- NOTE | 2025-04-16 09:57 | Hospitalist Progress Note ---
"Date of Service April 16, 2025 Assessment & Plan (1) Dementia with agitation: (2) Elevated troponin: (3) Hyperkalemia: Plan This patient is an 85-year-old female who presented on 04/02 for a ground-level fall. She is a poor historian due to history of underlying dementia. Currently awaiting SNF placement w/ hospice. #Dementia with agitation | RACK PUSHER Comfort measures only. Roxanol 10mg PO q3h prn for SOB/pain Ativan 1mg SL q6h prn for anxiety/agitation Haldol 0.5mg PO q4h prn for anxiety/agitation Placement pending - discussed w/ CM. Disposition: Medically stable for discharge at this time; will require discharge to SNF facility with hospice care when arrangements are finalized Admission and Anticipated Discharge Date Admission Date: April 02, 2025 Supervising Physician Co-Signing Physician Notes The patient was not seen by me. The chart was reviewed. Case discussed with CECILIO Stern. Agree with assessment and plan Subjective Ana seen and examined this morning. She was sleeping at time of encounter, endorsed no complaints. Appeared comfortable. Physical Exam Constitutional: sleeping, not arousable to speech Respiratory: normal respiratory effort Skin: no rashes, warm and dry Psychiatric: sleeping, appears comfortable Results & Data Results & Data Vital Signs (Past 12 Hours) Vital Signs O2 Del Method 04/16/25 07:55 Room Air PG Care Time/CCT Total # of Minutes Spent Total Time Spent with Patient: Total time spent is greater than 50% in coordination of care (as documented) at patient's floor/unit and/or counseling patient: Coding Level of Care Code 48756 SUB INP/OBS CARE 2/35MIN Diagnoses Dementia with agitation F03.911 Elevated troponin R79.89 Hyperkalemia E87.5"
--- NOTE | 2025-04-17 10:37 | Hospitalist Progress Note ---
"Date of Service April 17, 2025 Assessment & Plan (1) Dementia with agitation: (2) Elevated troponin: (3) Hyperkalemia: Plan This patient is an 85-year-old female who presented on 04/02 for a ground-level fall. She is a poor historian due to history of underlying dementia. Currently awaiting SNF placement w/ hospice. #Dementia with agitation | [employer]LYST Comfort measures only. Roxanol 10mg PO q3h prn for SOB/pain Ativan 1mg SL q6h prn for anxiety/agitation Haldol 0.5mg PO q4h prn for anxiety/agitation Placement pending - discussed w/ CM. Disposition: Medically stable for discharge at this time; will require discharge to SNF facility with hospice care when arrangements are finalized Updated son 04/17 Admission and Anticipated Discharge Date Admission Date: April 02, 2025 Supervising Physician Co-Signing Physician Notes The patient was not seen by me. The chart was reviewed. Case discussed with CECILIO Stern. Agree with assessment and plan Subjective Ana seen and examined this morning. SHe was resting comfortably in bed, unable to explain any complaints. Physical Exam Constitutional: sleeping, appeared comfortable Respiratory: shallow breathing Skin: no rashes, warm and dry Psychiatric: sleeping, appears comfortable. PG Care Time/CCT Total # of Minutes Spent Total Time Spent with Patient: Total time spent is greater than 50% in coordination of care (as documented) at patient's floor/unit and/or counseling patient: Coding Level of Care Code 34989 SUB INP/OBS CARE 2/35MIN Diagnoses Dementia with agitation F03.911 Elevated troponin R79.89 Hyperkalemia E87.5"
--- NOTE | 2025-04-17 21:15 | Death Pronouncement Note ---
Date of Service April 17, 2025 Pronouncement Note Admission Date Admission Date: April 02, 2025 Date and Time of Date of : 04/17/25 Time of : 20:43 Contributing Factors (1) Dementia with agitation: (2) Elevated troponin: (3) Hyperkalemia: Summary Additional details: I was called to pronounce the of HARITHA Long 1940 by the nurse, Carolyn Mendez on 04/17/2025. Upon entering the room, patient was found to be unresponsive to, and did not withdrawal from, verbal or tactile stimuli. Neither corneal nor pupillary reflexes could be elicited. On cardiopulmonary exam, they were found to be without detectable carotid or radial pulses, and without spontaneous heartbeats or respirations. Time of was pronounced by me on 04/17/25, 20:43. Attending physician was notified was notified. Next of kin was notified by myself. Signed: Dr. Jacky Bird Additional Data Confirmation of : no pulse, no respirations, no heart sounds and pupils fixed and dilated Family: contacted Attending/PCP notified?: Yes Attending physician: Francisco J Calderón MD Was code activated?: No Autopsy requested?: No workers' compensation claims examiner notified?: No
--- NOTE | 2025-04-18 08:54 | Discharge Summary ---
"Discharge Summary Date of Service April 18, 2025 Principal Dx & Hospital Course #1 = Principal Diagnosis (1) Dementia with agitation: (2) Elevated troponin: (3) Hyperkalemia: Plan This patient is an 85-year-old female who presented on 04/02 for a ground-level fall. #Dementia with agitation | BRICK SHADER Patient was admitted on 04/02/2025 secondary to a ground level fall. While hospitalized, palliative care was consulted and patient was then transitioned to BRICK SHADER status on 04/03/2025. She remained inpatient secondary to placement issues. While inpatient she was administered PO Roxanol starting on 04/15/2025 and had 3 total doses until expiration. pronouncement occurred at 8:[address] Jacky Bird. Ana's next of kin, Diego was contacted at that time. Cause of was failure to thrive with underlying dementia. Admission HPI Per Admitting Provider The patient is an 85-year-old female with a past medical history including dementia, polycythemia, atrial arrhythmia, urinary tract infection, memory loss. She was brought to the emergency department after staff noted her having multiple syncopal episodes and passing out at [facility] earlier in the day today. Workup in the emergency department included normal CT scan of head, and a normal CT scan of cervical spine. Troponin is mildly elevated 25.7, and patient was referred for evaluation for admission for [facility] service Discharge Plan Discharge Items Patient Disposition: Other Date/Time: 04/17/25 20:43 Hospital Stay Data Consultations 04/02/25 15:53 ED Decision to Admit Stat 04/03/25 09:26 Consult Palliative Care Routine Diagnostic Imagining Performed 04/02/25 14:52 CT cervical spine wo con Stat CT head/brain wo con Stat Supervising Physician Co-Signing Physician Notes The patient was not seen by me. The chart was reviewed. Case discussed with CECILIO Stern. Agree with assessment and plan Total Time Total Time Spent Total Time Spent (In Minutes): 25 Total Time Includes: Communication With Other Providers and Other Coding Level of Care Code 55719 IN/OBS DISCH 30 MIN/LESS Diagnoses Dementia with agitation F03.911 Elevated troponin R79.89 Hyperkalemia E87.5"
== END 2025-04-17 22:14 | disposition expired | DRG 884 ==
LOC: ED 14:45 → SUATTDRO 16:43 → 2S 16:43 → 3W 04-04 17:51